=== PATIENT | male | born 1950 | race Caucasian/White ===

== ENCOUNTER 2023-09-14 10:18 | Emergency (ER) | payer MEDICARE, BC, SELFPAY ==
[2023-09-14] VITALS (35 sets, daily range): BP systolic 107–148; BP diastolic 48–110; PULSE 60–175; RESP 22; TEMP 36.2; O2SAT 70–99
--- NOTE | 2023-09-14 10:52 | ED_ITS ---
HPI - SOB/Dyspnea General Time Seen by Provider: 10:52 Date Seen: 09/14/23 Chief Complaint: Shortness of Breath/Dyspnea Stated Complaint: pneumonia / AFIB Time Seen by Provider: 09/14/23 10:21 Source: patient, family, RN notes reviewed and old records reviewed (Phone call from urgent care received about this patient, sign-out given.) Limitations: no limitations History of Present Illness HPI Narrative: This 73-year-old male was referred by Urgent Care for atrial fibrillation [place] [address]. Patient reportedly had about a 4 week history of coughing which was worsening last 2 days. He was having increasing shortness of breath. He reportedly had no prior cardiac history. He is diabetic, glucose was 426 at urgent care but he did not take is 90 units of Lantus last night. Does have hypertension and is on medication. He has no history of atrial fibrillation. He came in thinking he probably had pneumonia. No current fevers. His chest x-ray reportedly showed some infiltrate. MD elicited complaint: shortness of breath and cough Related Data Home oxygen amount: none Home Medications Medication Instructions Recorded Confirmed acarbose 50 mg tablet 50 mg PO 3XD 10/10/22 09/14/23 clobetasol 0.05 % topical cream topical 10/10/22 09/14/23 exenatide microspheres 2 mg/0.85 mg subcut 10/10/22 09/14/23 mL subcutaneous auto-injector ([employer]) glipizide 10 mg tablet, extended 10 mg PO BID 10/10/22 09/14/23 release 24 hr hydrochlorothiazide 25 mg tablet 25 mg PO DAILY 10/10/22 09/14/23 insulin glargine 100 unit/mL (3 unit subcut 10/10/22 09/14/23 mL) subcutaneous pen (Lantus Solostar U-100 Insulin) lisinopril 10 mg tablet 10 mg PO DAILY 10/10/22 09/14/23 metformin 1,000 mg tablet 1,000 mg PO BID 10/10/22 09/14/23 metoprolol tartrate 50 mg tablet 50 mg PO BID 10/10/22 09/14/23 nifedipine 60 mg tablet,extended 60 mg PO DAILY 10/10/22 09/14/23 release pen needle, diabetic 31 gauge x #1,200 ea 10/10/22 09/14/23/16 (UltiCare Pen Needle) simvastatin 80 mg tablet 80 mg PO DAILY 10/10/22 09/14/23 Previous Rx's Medication Instructions Recorded cephalexin 500 mg capsule 2,000 mg (4 x 500 mg) PO ONCE #4 12/09/22 caps Allergies Allergy/AdvReac Type Severity Reaction Status Date / Time No Known Drug Allergies Allergy Verified 09/14/23 12:34 Review of Systems Status of ROS: Reports: 6 or more systems reviewed and unremarkable except as noted in History and below [facility] Medical History High cholesterol ?E78.00 - Pure hypercholesterolemia, unspecified (ICD-10) Hypertension ?I10 - Essential (primary) hypertension (ICD-10) Lumbar degenerative disc disease ?M51.36 - Other intervertebral disc degeneration, lumbar region (ICD-10) Diabetes ?E11.9 - Type 2 diabetes mellitus without complications (ICD-10) Trigger finger (acquired) ?M65.30 - Trigger finger, unspecified finger (ICD-10) Surgical History 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) ?Z96.642 - Presence of left artificial hip joint (ICD-10) 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) ?Z96.641 - Presence of right artificial hip joint (ICD-10) Social History Smoking Status: Former smoker Do you use any of these nicotine containing products: None How often do you have a drink containing alcohol: never How often do you have six or more drinks on one occasion: Never AUDIT-C Alcohol total score: 0 Non-prescribed substance use: denies use Exam Const: Vital Signs, click to edit/add: Vital Signs - 24 hr 09/14/23 10:21 09/14/23 10:43 09/14/23 10:45 Temperature Pulse Rate 119 H 175 H Pulse Rate [Pulse Oximeter] Respiratory Rate Blood Pressure Blood Pressure [Ri ght Upper Arm] Pulse Oximetry 95 90 77 L Oxygen Delivery Me thod 09/14/23 10:47 09/14/23 11:00 09/14/23 11:15 Temperature 97.1 F L Pulse Rate 130 H 121 H Pulse Rate [Pulse Oximeter] 120 H Respiratory Rate 22 Blood Pressure Blood Pressure [Ri ght Upper Arm] 131/84 Pulse Oximetry 94 90 83 L Oxygen Delivery Me thod Room Air 09/14/23 11:30 09/14/23 11:45 09/14/23 12:00 Temperature Pulse Rate 106 H 130 H 61 Pulse Rate [Pulse Oximeter] Respiratory Rate Blood Pressure Blood Pressure [Ri ght Upper Arm] Pulse Oximetry 93 88 96 Oxygen Delivery Me thod 09/14/23 12:07 09/14/23 12:12 09/14/23 12:15 Temperature Pulse Rate 60 62 67 Pulse Rate [Pulse Oximeter] Respiratory Rate Blood Pressure 107/77 110/67 Blood Pressure [Ri ght Upper Arm] Pulse Oximetry 98 95 93 Oxygen Delivery Me thod 09/14/23 12:16 09/14/23 12:39 09/14/23 12:40 Temperature Pulse Rate 70 91 91 Pulse Rate [Pulse Oximeter] Respiratory Rate Blood Pressure 114/54 L 138/79 Blood Pressure [Ri ght Upper Arm] Pulse Oximetry 91 97 97 Oxygen Delivery Me thod 09/14/23 12:42 09/14/23 12:45 09/14/23 12:47 Temperature Pulse Rate 93 98 Pulse Rate [Pulse Oximeter] Respiratory Rate Blood Pressure 137/68 146/63 H Blood Pressure [Ri ght Upper Arm] Pulse Oximetry 98 70 L Oxygen Delivery Me thod 09/14/23 12:52 09/14/23 12:57 09/14/23 13:00 Temperature Pulse Rate 88 86 Pulse Rate [Pulse Oximeter] Respiratory Rate Blood Pressure 130/74 135/52 L Blood Pressure [Ri ght Upper Arm] Pulse Oximetry 96 98 80 L Oxygen Delivery Me thod 09/14/23 13:02 09/14/23 13:06 09/14/23 13:09 Temperature Pulse Rate 92 85 Pulse Rate [Pulse Oximeter] Respiratory Rate Blood Pressure 124/74 148/48 H Blood Pressure [Ri ght Upper Arm] Pulse Oximetry 91 95 87 L Oxygen Delivery Me thod Nasal Cannula 09/14/23 13:12 09/14/23 13:15 09/14/23 13:17 Temperature Pulse Rate 93 93 90 Pulse Rate [Pulse Oximeter] Respiratory Rate Blood Pressure 127/71 114/79 Blood Pressure [Ri ght Upper Arm] Pulse Oximetry 91 98 [facility] 13:21 09/14/23 13:27 09/14/23 13:30 Temperature Pulse Rate 89 89 90 Pulse Rate [Pulse Oximeter] Respiratory Rate Blood Pressure 124/62 129/72 Blood Pressure [Ri ght Upper Arm] Pulse Oximetry 94 96 81 L [facility]23 13:32 09/14/23 13:38 09/14/23 13:42 Temperature Pulse Rate 89 90 90 Pulse Rate [Pulse Oximeter] Respiratory Rate Blood Pressure 148/77 H 136/69 146/110 H Blood Pressure [Ri ght Upper Arm] Pulse Oximetry 99 92 98 [facility]/14/23 13:42 09/14/23 13:45 09/14/23 13:47 Temperature Pulse Rate 90 93 98 Pulse Rate [Pulse Oximeter] Respiratory Rate Blood Pressure 146/110 H 137/79 Blood Pressure [Ri ght Upper Arm] Pulse Oximetry 98 95 94 Oxygen Delivery [place] [facility] 73-year-old male is alert, interactive, tachypneic. Needing to sit upright. Sclera clear, conjugate gaze, pupils are equal round. Able to speak pretty easily but do note it shorter phrases, is not seemingly fluent in his speech. Neck is thick, difficult to say if there is jugular venous distension but I feel no masses. Maybe some slightly diminished breath sounds at bases but no definite crackles, somewhat diminished breath sounds throughout. CV is fast irregular, do not hear any murmurs. Abdomen seems like it is mildly protrude were in but he states he does not feel there is any abdominal change, does not feel distended. He certainly nontender, no organomegaly. He has some chronic pigmentary changes of his lower extremities but no pitting edema. Documenting provider has reviewed patient's vital signs: yes Course Course ED Course: This is a 73-year-old male with possible underlying pneumonia on a, he is in atrial fibrillation with RVR. Eleven on appropriate monitoring with cardiac monitoring, pulse oximetry, established an IV. I do think he may need chest CT imaging and we will consider pulmonary emboli here to. Get cardiac labs. He has not taken any of his medicines, he did show me his pillbox, will allow him to take his morning oral meds. Part of that is 60 of oral nifedipine and 50 mg oral metoprolol. Will give him a dose of 5 mg IV metoprolol for rate control for his atrial fibrillation, continue to monitor. Will do a low dose of 250 mL. We do need to consider congestive heart failure in this patient. He may need the advanced imaging with a CT to further elucidate his underlying cardiopulmonary pathology. Again, will work on rate control meantime while we await labs. Reevaluation(s) Time of Reevaluation #1: 11:48 Reevaluation #1: Did check on patient as is troponin is 20.6. He has become a hypoxic come is tachypneic. His lactate is up. He certainly could be septic, do wonder if he has some pulmonary venous congestion. He at this point needs a stat chest CT PE protocol. His potassium has been confirmed elevated at 6.2. I do believe he is going to need transfer, will contact [facility] as he has requested. Time of Reevaluation #2: 12:02 Reevaluation #2: Nursing staff brought an updated EKG which will be labile 3. Patient has converted into normal sinus rhythm, 84 beats per minute. He has flipped T-waves lead 1 and aVL, some nonspecific appearing intra conduction delay. He has got poor R-wave progression in the anterior precordial leads/Q-waves. QT corrected 475 milliseconds. Time of Reevaluation #3: 12:54 Reevaluation #3: Reviewed with patient that we are starting heparin for [place]. We will await the CT. He wanted to know about pneumonia, did review with him we do think he has congestive heart failure, will await the CT results to get better imaging of the lungs. He has not taken his 81 mg aspirin today, will order aspirin for him. Patient is starting to feel the effects of the 20 mg IV Lasix, thinks he will start urinating. Will follow his in's and out's, if not producing adequate urine, may consider further dosing of Lasix per Additional Reevaluation(s): 1:26 p.m., have reviewed his CT report, there is likely congestive heart failure but multifocal pneumonia. Have ordered IV Rocephin and IV azithromycin, will not give him anything orally in case he should go for any interventional cardiac procedures. Consultations Consultation #1: Spoke with Dr. Carr regarding this patient in the complexities of the case. He does except, we are going to initiate ACS heparin. If for some reason there is a PE, can read bolus with additional heparin and readjust the heparin drip. Will rule out pneumonia, pulmonary embolus. Patient has hyperkalemia, probable some fluid overload, 20 mg IV Lasix has been ordered. Have asked nursing staff to do in sign-out on this patient. He has become mildly hypoxic, did order 3 L nasal cannula. Need to rule out under lying pneumonia which the chest CT will do so. Time: 12:09 Vital Signs Vital signs: Initial Vital Signs Pulse Oximetry 95 09/14/23 10:21 Vital Signs Pulse Oximetry 95 09/14/23 10:21 Temperature 97.1 F L 09/14/23 10:47 Pulse Rate 98 09/14/23 13:47 Respiratory Rate 22 09/14/23 10:47 Blood Pressure 137/79 09/14/23 13:47 Pulse Oximetry 94 09/14/23 13:47 Oxygen Delivery Method Nasal Cannula 09/14/23 13:06 Medications Administered Medications: Discontinued Medications Generic Name Dose Route Start Last Admin Trade Name Freq PRN Reason Stop Dose Admin Aspirin 324 mg 09/14/23 13:25 09/14/23 13:36 Aspirin 81 Mg Tab.Chew PO 09/14/23 13:26 324 mg ONCE ONE Administration Furosemide 20 mg 09/14/23 12:00 09/14/23 12:43 Furosemide 10 Mg/Ml Inj IVP 09/14/23 12:01 20 mg ONCE ONE Administration Heparin Sodium (Porcine) 4,000 unit 09/14/23 12:32 09/14/23 12:56 Heparin 5,000 Unit/0.5 Ml Inj IVP 09/14/23 12:33 4,000 unit ONCE ONE Administration Sodium Chloride 250 mls @ 250 mls/hr 09/14/23 11:06 09/14/23 13:30 0.9 % Sodium Chloride 250 Ml IV 09/14/23 12:05 Infused .Q1H ONE Infusion Heparin Sodium/Dextrose 25,000 unit in 500 mls @ 0 mls/hr 09/14/23 12:45 09/14/23 12:57 Heparin IV 1,000 unit/hr .Q0M JEROME 20 mls/hr Administration Protocol Per Protocol Ceftriaxone Sodium 1 gm/ 100 mls @ 200 mls/hr 09/14/23 13:23 09/14/23 13:40 Sodium Chloride IVPB 09/14/23 13:24 200 mls/hr ONCE ONE Administration Azithromycin 500 mg/ Sodium 255 mls @ 255 mls/hr 09/14/23 13:23 09/14/23 13:56 Chloride IVPB 09/14/23 13:24 Not Given ONCE ONE Metoprolol Tartrate 5 mg 09/14/23 11:06 09/14/23 11:19 Metoprolol Tartrate 1 Mg/Ml Inj IVP 09/14/23 11:07 5 mg ONCE ONE Administration MDM - SOB/Dyspnea Medical Records Attestation: I reviewed the patient's medical records. Medical records narrative: Chest x-ray from urgent care read nonspecific central opacities may reflect viral or atypical pneumonia. I did look at this, do wonder if there is possibly some congestive changes. His EKG from Urgent Care today showed atrial fibrillation with rapid ventricular response, 121 beats per minute. Flipped T- waves 1 in aVL without significant ST depression. His electrolytes from clinic showed a sodium of 138,000, potassium of 6, creatinine of 1.3, chloride of 107, bicarb of 18, BUN of 49, IN ice calcium 1.18. Point of care glucose was 426. Lab Data Attestation: I reviewed the patient's lab results. Labs: Lab Results 09/14/23 09/14/23 Range/Units 10:45 11:02 INR 1.10 (0.91-1.10) APTT 29 (23-33) Seconds D-Dimer Quant (PE/DVT) 1.12 H (0.00-0.50) ug/ml VBG pH 7.286 L (7.32-7.43) VBG pCO2 38 L (40-50) mmHG VBG pO2 < 30.1 (25-47) mmHG VBG HCO3 18 L (21-28) mmol/L Potassium 6.2 H* (3.6-5.1) mmol/L Lactate 5.6 H* (0.5-1.9) mmol/L Magnesium 2.2 (1.5-2.6) mg/dL Troponin I 20.60 H* (0.01-0.04) ng/mL C-Reactive Protein 2.1 H (0.5-1.0) mg/dL NT-Pro-B Natriuret Pep 16655 pg/mL Procalcitonin 0.50 (<0.50) ng/mL TSH 2.340 (0.270-4.200) uIU/mL Lab Acknowledgement Test Added Imaging Data CT scan - chest: Attestation: I have reviewed the pertinent imaging results. Radiologist's impression: Patient: HARESH BONILLA Facility:?[facility] Patient ID:?[id number] Site Patient ID:?[id number]. Site :?[id number] Study:?CT-Chest w/ 95cc Isovue-370 PE Protocol-09/14/2023 12:53:49 PM Ordering Physician:?Dennis Lehman Final Report: INDICATION: Shortness of breath. Hypoxia. Elevated serum troponin. COMPARISON: None available. TECHNIQUE: CT pulmonary angiography with 95 cc of Isovue 370 intravenous contrast. Please note that all CT scans at this facility use dose modulation, iterative reconstruction, and/or weight-based dosing when appropriate to reduce radiation dose to as low as reasonably achievable. FINDINGS: Motion artifact limits assessment of the distal segmental and subsegmental pulmonary arteries. Pulmonary Arterial Vasculature: Opacification of the pulmonary arterial tree is adequate. No intraluminal pulmonary arterial filling defect is identified to indicate a pulmonary embolism. Visualized Lower Neck: No lower cervical adenopathy. Mediastinum: Thoracic aorta and pulmonary trunk are normal in caliber. Cardiomegaly and moderate to severe multivessel atherosclerotic coronary artery calcifications. Trachea and esophagus are normal in appearance. There is no mediastinal lymphadenopathy. Lungs and Pleura: Patchy left upper lobe and superior segment left lower lobe ground-glass opacities consistent with nonspecific pneumonitis. Incidental benign anterior segment right upper lobe micronodule. Bilateral symmetrical moderate low-density pleural effusions. No pneumothorax. Skeleton: No significant osseous findings. Thoracic soft tissues: Unremarkable. No axillary adenopathy. Visualized Upper Abdomen: No significant findings. IMPRESSION: 1. Motion limited study as above. 2. No evidence of pulmonary embolism. 3. Patchy ground-glass opacities in the left upper lobe and superior segment of the left lower lobe consistent with nonspecific multifocal pneumonitis. Recommend clinical correlation as to any cooperative evidence of pneumonia. 4. Moderate symmetrical bilateral low-density pleural effusions. 5. Cardiomegaly and moderate to severe multivessel atherosclerotic coronary artery calcifications. Please note that all CT scans at this facility use dose modulation, iterative reconstruction, and/or weight-based dosing when appropriate to reduce radiation dose to as low as reasonably achievable. Dictated by Navneet Weiss MD @ 09/14/2023 1:21:56 PM (Electronic Signature) ECG Data Attestation: I personally reviewed and interpreted this ECG as follows: (Atrial fibrillation with rapid ventricular response, 120 beats per minute. Poor R-wave progression/Q-waves anterior precordial leads without significant definite ST segment changes. Flipped T-waves lead 1 and aVL. QT corrected 440 milliseconds.) ECG interpretation date: 09/14/23 ECG interpretation time: 10:50 Interpretation: EKG #3 time 12:41 p.m. done to ensure stability and no STEMI changes is showing normal sinus rhythm, flipped T-waves lead 1 and aVL. Poor R-wave progression/Q- waves anterior precordial leads. Discharge Plan Discharge Clinical Impression: Non-ST elevated myocardial infarction (non-STEMI), Hypoxia, Paroxysmal atrial fibrillation, Multifocal pneumonia Congestive heart failure Qualifiers: Heart failure type: unspecified Heart failure chronicity: acute Qualified Code(s): I50.9 - Heart failure, unspecified Patient Disposition: Xfer [facility] Discharge Location: [facility] Prescriptions: No Action insulin glargine [Lantus Solostar U-100 Insulin] 100 unit/mL (3 mL) insulin pen subcut nifedipine 60 mg tablet extended release 60 mg PO DAILY hydrochlorothiazide 25 mg tablet 25 mg PO DAILY metoprolol tartrate 50 mg tablet 50 mg PO BID lisinopril 10 mg tablet 10 mg PO DAILY metformin 1,000 mg tablet 1,000 mg PO BID simvastatin 80 mg tablet 80 mg PO DAILY acarbose 50 mg tablet 50 mg PO 3XD glipizide 10 mg tablet extended release 24hr 10 mg PO BID Bydureon BCise 2 mg/0.85 mL auto-injector subcut clobetasol 0.05 % cream topical (DME) pen needle, diabetic [UltiCare Pen Needle] 31 gauge x 5/16 needle See Rx Instructions .ROUTE .MEDSUPPLY Qty: 1200 Patient Comments: FOR ADMINISTERING INSULIN AT HOME Rx Instructions: As directed cephalexin 500 mg capsule 2,000 mg PO ONCE Qty: 4 3RF Rx Instructions: Take 4 capsules (2000mg) 1 hour prior to dental appointment. Stand Alone Forms: [employer] Info Instructions
[2023-09-14 10:57] LABS: HCO3 VBG 18 mmol/L (21-28); PCO2 VBG 38 mmHG (40-50); PO2 VBG < 30.1 mmHG (25-47); pH VBG 7.286 (7.32-7.43)
[2023-09-14 11:07] LABS: Lactate* 5.6 mmol/L (0.5-1.9)
[2023-09-14] MEDS: 0.9 % SODIUM CHLORIDE 250 ml 250 ML IV (11:19)
[2023-09-14] MEDS: METOPROLOL TARTRATE 1 MG/ML inj 5 MG IVP (11:19)
[2023-09-14 11:24] LABS: Prothrombin Time 14.9 Seconds
[2023-09-14 11:25] LABS: Partial Thromboplastin Time* 29 Seconds (23-33)
[2023-09-14 11:26] LABS: Magnesium* 2.2 mg/dL (1.5-2.6)
[2023-09-14 11:27] LABS: D Dimer Quantitative* 1.12 ug/ml (0.00-0.50)
[2023-09-14 11:29] LABS: C Reactive Protein* 2.1 mg/dL (0.5-1.0)
[2023-09-14 11:42] LABS: Potassium* 6.2 mmol/L (3.6-5.1)
[2023-09-14 11:43] LABS: NT Pro B Type NatriureticPept* 24700 pg/mL
--- NOTE | 2023-09-14 11:49 | CT_ITS ---
Patient: HARESH BONILLA Facility:?[facility] Patient ID:?[id number] Site Patient ID:?[id number]. Site :?1950 Study:?CT-Chest w/ 95cc Isovue-370 PE Protocol-09/14/2023 12:53:49 PM Ordering Physician:?Dennis Lehman Final Report: INDICATION: Shortness of breath. Hypoxia. Elevated serum troponin. COMPARISON: None available. TECHNIQUE: CT pulmonary angiography with 95 cc of Isovue 370 intravenous contrast. Please note that all CT scans at this facility use dose modulation, iterative reconstruction, and/or weight-based dosing when appropriate to reduce radiation dose to as low as reasonably achievable. FINDINGS: Motion artifact limits assessment of the distal segmental and subsegmental pulmonary arteries. Pulmonary Arterial Vasculature: Opacification of the pulmonary arterial tree is adequate. No intraluminal pulmonary arterial filling defect is identified to indicate a pulmonary embolism. Visualized Lower Neck: No lower cervical adenopathy. Mediastinum: Thoracic aorta and pulmonary trunk are normal in caliber. Cardiomegaly and moderate to severe multivessel atherosclerotic coronary artery calcifications. Trachea and esophagus are normal in appearance. There is no mediastinal lymphadenopathy. Lungs and Pleura: Patchy left upper lobe and superior segment left lower lobe ground-glass opacities consistent with nonspecific pneumonitis. Incidental benign anterior segment right upper lobe micronodule. Bilateral symmetrical moderate low-density pleural effusions. No pneumothorax. Skeleton: No significant osseous findings. Thoracic soft tissues: Unremarkable. No axillary adenopathy. Visualized Upper Abdomen: No significant findings. IMPRESSION: 1. Motion limited study as above. 2. No evidence of pulmonary embolism. 3. Patchy ground-glass opacities in the left upper lobe and superior segment of the left lower lobe consistent with nonspecific multifocal pneumonitis. Recommend clinical correlation as to any cooperative evidence of pneumonia. 4. Moderate symmetrical bilateral low-density pleural effusions. 5. Cardiomegaly and moderate to severe multivessel atherosclerotic coronary artery calcifications. Please note that all CT scans at this facility use dose modulation, iterative reconstruction, and/or weight-based dosing when appropriate to reduce radiation dose to as low as reasonably achievable. Dictated by Navneet Weiss MD @ 09/14/2023 1:21:56 PM Signed by:?Navneet Weiss MD @09/14/2023 1:21:56 PM (Electronic Signature)
[2023-09-14] MEDS: FUROSEMIDE 10 MG/ML inj 20 MG IVP (12:43)
[2023-09-14] MEDS: HEPARIN 5,000 UNIT/0.5 ML INJ 4000 UNIT IVP (12:56)
[2023-09-14] MEDS: HEPARIN 25,000 UNIT/500 ML BAG 20 UNIT IV (12:57)
[2023-09-14] MEDS: ASPIRIN 81 MG TAB.CHEW 324 MG PO (13:36)
[2023-09-14] MEDS: cefTRIAXone 1 GM in 0.9 % SODIUM CHLORIDE Mini-bag 100 ML IVPB (13:40)
== END 2023-09-14 13:55 | disposition short-term general hospital (02) ==
PROVIDERS: Emergency Provider Family Medicine; PCP Family Medicine
DX: I21.4 Non-ST elevation (NSTEMI) myocardial infarction (principal); R09.02 Hypoxemia; I48.0 Paroxysmal atrial fibrillation; J18.9 Pneumonia, unspecified organism; I50.9 Heart failure, unspecified
CPT/HCPCS: 36415; 71275; 82803; 83605; 83735; 83880; 84132; 84145; 84443; 84484; 85379; 85610; 85730; 86140; 93005; 94761; 96361; 96374; 96375; 99285; 99291; A9270; J0696; J1644; J1940; J7050; Q9967

== ENCOUNTER 2023-09-14 13:44 | Outpatient (CLI) | payer MEDICARE, BC, SELFPAY | END 2023-09-14 13:45 | disposition home or self-care (01) | LOC: AMB 09-21 16:29 | PROVIDERS: PCP Family Medicine; Visit Provider Family Medicine | DX: I21.4 Non-ST elevation (NSTEMI) myocardial infarction (principal); R09.02 Hypoxemia; J18.9 Pneumonia, unspecified organism | CPT/HCPCS: A0425; A0434 ==

== ENCOUNTER 2023-10-04 12:35 | Inpatient (IN) | payer MEDICARE, BC, SELFPAY ==
[2023-10-04] VITALS (17 sets, daily range): BP systolic 104–148; BP diastolic 47–66; PULSE 80–89; RESP 18–22; TEMP 36.2–37.2; O2SAT 97–100; BMI 31.5; BMI 31.7
--- NOTE | 2023-10-04 13:16 | XR_ITS ---
Patient: HARESH BONILLA Facility:?[facility] Patient ID:?[id number] Site Patient ID:?[id number]. Site :?1950 Study:?XRay-Chest 2 VIEW-10/04/2023 1:36:37 PM Ordering Physician:ANA MARIA Final Report: INDICATION: Shortness of breath TECHNIQUE: Two view chest. FINDINGS: The lungs are clear. The heart, mediastinum and pulmonary vessels are of normal size. There is no evidence of pleural disease. IMPRESSION: Negative chest. Dictated by Staci Chavez MD @ 10/04/2023 2:06:28 PM Signed by:?Staci Chavez MD @10/04/2023 2:06:28 PM (Electronic Signature)
[2023-10-04 13:33] LABS: Basophils Percent Auto 0.1 % (0.0-3.0); Eosinophils Percent Auto 0.3 % (0.0-7.0); Hematocrit 20.2 % (37.0-53.0); Immature Granulocytes Pct Auto 1.8 %; Lactate* 4.2 mmol/L (0.5-1.9); Lymphocytes Percent Auto 7.1 % (20-44); Mean Corpuscular HGB Conc 32 gm/dL (32-36); Mean Corpuscular Hemoglobin 31 pg (26-34); Mean Corpuscular Volume 98 fL (80-100); Monocytes Percent Auto 3.3 % (0.0-11.0); Neutrophils Percent Auto 87.4 % (42.0-72.0); Platelet Count* 416 K/uL (140-440); RDW Coefficient of Variation % 14.6 % (11.5-15.5); Red Blood Count 2.07 m/uL (4.30-5.90); White Blood Count* 18.53 K/uL (4.50-11.00)
[2023-10-04 13:35] LABS: Hemoglobin* 6.4 gm/dL (13.5-17.5); Slide Review Reflex No
[2023-10-04 13:45] LABS: HCO3 VBG 20 mmol/L (21-28); PCO2 VBG 36 mmHG (40-50); PO2 VBG < 30.0 mmHG (25-47); pH VBG 7.348 (7.32-7.43)
[2023-10-04 13:48] LABS: Albumin* 3.6 g/dL (3.3-5.0); Chloride* 103 mmol/L (96-114)
[2023-10-04 13:49] LABS: Potassium* 5.7 mmol/L (3.6-5.1); Sodium* 134 mmol/L (135-149)
[2023-10-04 13:51] LABS: Creatinine* 1.4 mg/dL (0.5-1.5); Est. Creatinine Clearance* 44.79; Estimated Glomerular Filt Rate 53 ml/min
[2023-10-04 13:52] LABS: Alanine Aminotransferase* 29 U/L (4-50); Alkaline Phosphatase* 47 U/L (40-150); Anion Gap 11 mEq/L (7-15); Aspartate Amino Transferase* 22 U/L (12-35); Bilirubin Total* 0.5 mg/dL (0.1-1.5); Blood Urea Nitrogen* 72 mg/dL (7-30); Calcium* 8.7 mg/dL (8.4-10.6); Carbon Dioxide* 20 mmol/L (20-32); Magnesium* 1.8 mg/dL (1.5-2.6); Total Protein* 6.2 g/dL (6.0-8.3)
[2023-10-04 14:00] LABS: C Reactive Protein* < 0.5 mg/dL (0.5-1.0); Glucose* 429 mg/dL (60-115)
[2023-10-04 14:03] LABS: NT Pro B Type NatriureticPept* 4230 pg/mL
[2023-10-04 14:05] LABS: Appearance Urine Clear (Clear); Bilirubin Urine Negative (Negative); Blood Urine Negative (Negative); Color Urine Yellow (Yellow); Fecal Occult Blood* Positive (Negative); Glucose Urine 1+ (Negative); Ketones Urine Negative (Negative); Leukocyte Esterase Urine Negative (Negative); Nitrite Urine Negative (Negative); Protein Urine Negative (Negative); Specific Gravity Urine 1.015 (1.000-1.030); Urobilinogen Urine 0.2 (0.2-1.0)
[2023-10-04 14:06] LABS: Troponin I* 0.04 ng/mL (0.01-0.04)
[2023-10-04 14:11] LABS: RBC Urine 0-2 (0-2); WBC Urine 0-2 (0-5)
[2023-10-04 14:12] LABS: Squamous Epithelial Cell Urine Few (None-Few)
--- NOTE | 2023-10-04 14:36 | ED.GENADULT ---
HPI - General Adult General Chief complaint: Extremity Pain/Injury, Lower Stated complaint: Stints a week ago, cellulitis in knee, weak, sore Time Seen by Provider: 10/04/23 12:38 Source: patient Mode of arrival: ambulatory Limitations: no limitations History of Present Illness HPI narrative: 73-year-old male coming in today complaining of weakness. Three weeks ago patient was diagnosed with pneumonia and an MRI. One week ago he had stents placed. He was also recently diagnosed with cellulitis of the knee which he states has been getting better. He comes in today because he ?simply feels weak?. He denies fevers or chills. No changes in his appetite. He states that he feels slightly short of breath with minimal exertion, no shortness of breath with rest. He denies chest pain. He denies abdominal discomfort. He is not having diarrhea but is having dark stools. He denies any urinary symptoms. No nausea or vomiting. States that his dark stool started once he started Eliquis which she believes was about a week ago. Patient was also recently diagnosed with atrial fibrillation with RVR. Related Data Home Medications Medication Instructions Recorded Confirmed acarbose 50 mg tablet 50 mg PO 3XD 10/10/22 10/02/23 clobetasol 0.05 % topical cream topical 10/10/22 10/02/23 exenatide microspheres 2 mg/0.85 mg subcut 10/10/22 10/02/23 mL subcutaneous auto-injector ([employer]) glipizide 10 mg tablet, extended 10 mg PO BID 10/10/22 10/02/23 release 24 hr hydrochlorothiazide 25 mg tablet 25 mg PO DAILY 10/10/22 10/02/23 insulin glargine 100 unit/mL (3 unit subcut 10/10/22 10/02/23 mL) subcutaneous pen (Lantus Solostar U-100 Insulin) metformin 1,000 mg tablet 1,000 mg PO BID 10/10/22 10/02/23 metoprolol tartrate 50 mg tablet 50 mg PO BID 10/10/22 10/02/23 nifedipine 60 mg tablet,extended 60 mg PO DAILY 10/10/22 10/02/23 release pen needle, diabetic 31 gauge x #1,200 ea 10/10/22 10/02/2310/07 (UltiCare Pen Needle) simvastatin 80 mg tablet 80 mg PO DAILY 10/10/22 10/02/23 amiodarone 200 mg tablet mg PO 09/28/23 10/02/23 clopidogrel 75 mg tablet 75 mg PO DAILY 09/28/23 10/02/23 furosemide 20 mg tablet 20 mg PO 3XD 09/28/23 10/02/23 losartan 25 mg tablet 25 mg PO BID 09/28/23 10/02/23 metoprolol succinate 50 mg 50 mg PO BID 09/28/23 10/02/23 tablet,extended release 24 hr rosuvastatin 10 mg tablet 10 mg PO QPM 09/28/23 10/02/23 spironolactone 25 mg tablet 25 mg PO DAILY 09/28/23 10/02/23 Previous Rx's Medication Instructions Recorded cephalexin 500 mg capsule 2,000 mg (4 x 500 mg) PO ONCE #4 12/09/22 caps cephalexin 500 mg capsule 500 mg PO QID #40 caps 09/28/23 Allergies Allergy/AdvReac Type Severity Reaction Status Date / Time No Known Drug Allergies Allergy Verified 10/02/23 09:11 Review of Systems Status of ROS: Reports: 10 or more systems reviewed and unremarkable except as noted in History and below [facility] Medical History High cholesterol ?E78.00 - Pure hypercholesterolemia, unspecified (ICD-10) Hypertension ?I10 - Essential (primary) hypertension (ICD-10) Lumbar degenerative disc disease ?M51.36 - Other intervertebral disc degeneration, lumbar region (ICD-10) Diabetes ?E11.9 - Type 2 diabetes mellitus without complications (ICD-10) Trigger finger (acquired) ?M65.30 - Trigger finger, unspecified finger (ICD-10) Surgical History 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 Alert and oriented x3. Answers questions appropriately. Mood and affect are appropriate. Thoughts are goal oriented and rational. No tangential or magical thinking noted. Patient speaks in full sentences without needing to catch his breath. Is in very good spirits. HEENT: Normocephalic atraumatic. Pupils are equally round reactive to light. Extraocular muscles are intact. Conjunctivae are moist without any icterus noted. Moist mucous membranes. Mucous membranes are quite pale. Neck is supple. Cardiovascular: Heart is regular rate and rhythm. Lungs: Clear to auscultation bilaterally no wheezes rhonchi or rales are appreciated. Patient takes deep breaths without any discomfort. Abdomen: Soft and nontender nondistended with normal bowel sounds. No guarding or rebound. Extremities: Bilateral lower extremities are without edema. Right groin, site of angiogram, has some healing ecchymosis which is expected. Skin: Well perfused. Const: Vital Signs, click to edit/add: Vital Signs - 24 hr 10/04/23 12:46 Temperature 97.2 F L Pulse Rate [Pulse Oximeter] 82 Respiratory Rate 22 Blood Pressure [Ri t Upper Arm] 127/52 L Pulse Oximetry 100 Oxygen Delivery Me thod Room Air Course Course ED Course: EKG, read by me, shows normal sinus rhythm with left axis deviation. Pulse 81. CBC shows a white cell count of 18.53, hemoglobin of 6.4, hematocrit 20.2. Chemistries show a sodium of 134, potassium elevated at 5.7. BUN is 72, creatinine is 1.4. Glucose is 429. Lactate is 4.2. Normal CRP and LFTs. Urinalysis has 1+ glucose. Stool positive for occult blood. Chest x-ray, read by me, negative for any acute pathology. Urine and blood cultures pending. IV was established in the blood was typed and crossed. 2 units of packed red blood cells was ordered for transfusion along with 250 mL of normal saline. Patient was given 10 units of regular insulin. Discussed patient with Dr. Severino who will accept the patient for admission. Vital Signs Vital signs: Initial Vital Signs Temperature 97.2 F L 10/04/23 12:46 Temperature Source Temporal Artery Scan 10/04/23 12:46 Pulse Rate 82 10/04/23 12:46 Respiratory Rate 22 10/04/23 12:46 Blood Pressure 127/52 L 10/04/23 12:46 Blood Pressure Mean 77 10/04/23 12:46 Blood Pressure Position Supine 10/04/23 12:46 Pulse Oximetry 100 10/04/23 12:46 Oxygen Delivery Method Room Air 10/04/23 12:46 Vital Signs Temperature 97.2 F L 10/04/23 12:46 Pulse Rate 82 10/04/23 12:46 Respiratory Rate 22 10/04/23 12:46 Blood Pressure 127/52 L 10/04/23 12:46 Pulse Oximetry 100 10/04/23 12:46 Oxygen Delivery Method Room Air 10/04/23 12:46 Temperature 97.2 F L 10/04/23 12:46 Pulse Rate 82 10/04/23 12:46 Respiratory Rate 22 10/04/23 12:46 Blood Pressure 127/52 L 10/04/23 12:46 Pulse Oximetry 100 10/04/23 12:46 Oxygen Delivery Method Room Air 10/04/23 12:46 Medications Administered Medications: Discontinued Medications Generic Name Dose Route Start Last Admin Trade Name Freq PRN Reason Stop Dose Admin Insulin Human Regular 10 unit 10/04/23 14:00 10/04/23 14:21 Insulin Regular 100 Unit/Ml Inj IVP 10/04/23 14:01 10 unit ONCE ONE Administration Medical Decision Making [facility] Narrative Medical decision making narrative: 73-year-old male with acute blood loss anemia likely secondary to GI bleed after starting Eliquis. Elevated lactate and glucose. Hyperkalemia. Patient will be admitted for further management. Medical Records Medical records reviewed: Yes I reviewed the patient's medical records Lab Data Lab results reviewed: Yes I reviewed the patient's lab results Labs: Lab Results 10/04/23 10/04/23 Range/Units 13:22 13:49 WBC 18.53 H (4.50-11.00) K/uL RBC 2.07 L (4.30-5.90) m/uL Hgb 6.4 L* (13.5-17.5) gm/dL Hct 20.2 L (37.0-53.0) % MCV 98 (80-100) fL MCH 31 (26-34) pg MCHC 32 (32-36) gm/dL RDW Coeff of Nina 14.6 (11.5-15.5) % Plt Count 416 (140-440) K/uL Neut % (Auto) 87.4 H (42.0-72.0) % Lymph % (Auto) 7.1 L (20-44) % [place] % (Auto) 3.3 (0.0-11.0) % Eos % (Auto) 0.3 (0.0-7.0) % Baso % (Auto) 0.1 (0.0-3.0) % Neut # (Auto) 16.20 H (1.7-7.0) K/uL Lymph # (Auto) 1.30 (0.90-2.90) K/uL [place] # (Auto) 0.60 (0.00-0.90) K/UL Eos # (Auto) 0.10 (0.00-0.50) K/uL Baso # (Auto) 0.00 (0.00-0.30) K/uL Abs Immat Gran (auto) 0.30 (0.00-0.30) K/uL Imm/Tot Granulo (auto) 1.8 % VBG pH 7.348 (7.32-7.43) VBG pCO2 36 L (40-50) mmHG VBG pO2 < 30.0 (25-47) mmHG VBG HCO3 20 L (21-28) mmol/L Sodium 134 L (135-149) mmol/L Potassium 5.7 H (3.6-5.1) mmol/L Chloride 103 (96-114) mmol/L Carbon Dioxide 20 (20-32) mmol/L Anion Gap 11 (7-15) mEq/L BUN 72 H (7-30) mg/dL Creatinine 1.4 (0.5-1.5) mg/dL Estimated Creat Clear 44.79 Estimated GFR 53 ml/min Glucose 429 H* (60-115) mg/dL Lactate 4.2 H* (0.5-1.9) mmol/L Calcium 8.7 (8.4-10.6) mg/dL Magnesium 1.8 (1.5-2.6) mg/dL Total Bilirubin 0.5 (0.1-1.5) mg/dL Direct Bilirubin 0.0 (0.0-0.5) mg/dL AST 22 (12-35) U/L ALT 29 (4-50) U/L Alkaline Phosphatase 47 (40-150) U/L Troponin I 0.04 (0.01-0.04) ng/mL C-Reactive Protein < 0.5 L (0.5-1.0) mg/dL NT-Pro-B Natriuret Pep 4230 pg/mL Total Protein 6.2 (6.0-8.3) g/dL Albumin 3.6 (3.3-5.0) g/dL Urine Color Yellow (Yellow) Urine Appearance Clear (Clear) Urine pH 5.0 (5.0-8.5) Ur Specific [place] 1.015 (1.000-1.030) Urine Protein Negative (Negative) Urine Glucose (UA) 1+ A (Negative) Urine Ketones Negative (Negative) Urine Blood Negative (Negative) Urine Nitrite Negative (Negative) Urine Bilirubin Negative (Negative) Urine Urobilinogen 0.2 (0.2-1.0) Ur Leukocyte Esterase Negative (Negative) Urine RBC 0-2 (0-2) Urine WBC 0-2 (0-5) Ur Squamous Epith Cells Few (None-Few) Urine Bacteria None (None) Stool Occult Blood Positive (Negative) Imaging Data Chest x-ray: Attestation: I have reviewed the pertinent imaging results. Radiologist's impression: Patient: HARESH BONILLA Facility:?[facility] Patient ID:?[id number] Site Patient ID:?[id number]. Site :?[id number] Study:?XRay-Chest 2 VIEW-10/04/2023 1:36:37 PM Ordering Physician:ANA MARIA Final Report: INDICATION: Shortness of breath TECHNIQUE: Two view chest. FINDINGS: The lungs are clear. The heart, mediastinum and pulmonary vessels are of normal size. There is no evidence of pleural disease. IMPRESSION: Negative chest. ECG Data Attestation: I personally reviewed and interpreted this ECG as follows: Discharge Plan Discharge Clinical Impression: GI bleed, Hyperglycemia, Acute blood loss anemia, Acute hyperkalemia Patient Disposition: Admitted As Observation Condition: Stable Prescriptions: No Action insulin glargine [Lantus Solostar U-100 Insulin] 100 unit/mL (3 mL) insulin pen subcut nifedipine 60 mg tablet extended release 60 mg PO DAILY hydrochlorothiazide 25 mg tablet 25 mg PO DAILY metoprolol tartrate 50 mg tablet 50 mg PO BID metformin 1,000 mg tablet 1,000 mg PO BID simvastatin 80 mg tablet 80 mg PO DAILY acarbose 50 mg tablet 50 mg PO 3XD glipizide 10 mg tablet extended release 24hr 10 mg PO BID Bydureon BCise 2 mg/0.85 mL auto-injector subcut clobetasol 0.05 % cream topical (DME) pen needle, diabetic [UltiCare Pen Needle] 31 gauge x 5/16 needle See Rx Instructions .ROUTE .MEDSUPPLY Qty: 1200 Patient Comments: FOR ADMINISTERING INSULIN AT HOME Rx Instructions: As directed rosuvastatin 10 mg tablet 10 mg PO QPM losartan 25 mg tablet 25 mg PO BID furosemide 20 mg tablet 20 mg PO 3XD spironolactone 25 mg tablet 25 mg PO DAILY clopidogrel 75 mg tablet 75 mg PO DAILY metoprolol succinate 50 mg tablet extended release 24 hr 50 mg PO BID amiodarone 200 mg tablet PO cephalexin 500 mg capsule 500 mg PO QID Qty: 40 0RF cephalexin 500 mg capsule 2,000 mg PO ONCE Qty: 4 3RF Rx Instructions: Take 4 capsules (2000mg) 1 hour prior to dental appointment. Follow Up/Referrals: Emir High MD [Primary Care Provider] -
[2023-10-04 15:01] LABS: Glucose, Point-of-Care* 344 mg/dl (60-115)
[2023-10-04 15:10] LABS: Potassium* 5.2 mmol/L (3.6-5.1)
[2023-10-04] MEDS: 0.9 % SODIUM CHLORIDE 250 ml IV (15:43)
[2023-10-04] MEDS: PANTOPRAZOLE SODIUM 40 MG INJ IVP (16:15)
[2023-10-04] MEDS: INSULIN ASPART 100 UNIT/ML SUBCUT ×2 (17:37→20:48)
--- NOTE | 2023-10-04 17:58 | P.IMHP_ITS ---
Hospitalist- H&P: HPI History of Present Illness Date Seen: 10/04/23 Chief complaint: Stints a week ago, cellulitis in knee, weak, sore Narrative: Osbaldo Stanley is a 73 year old male admitted through the emergency department with progressive fatigue malaise and weakness. Significant recent history: On September 13 he present to our emergency department with a respiratory illness. Is diagnosed and treated for a community-acquired pneumonia but also was noted to have a marked elevation in his troponin of 20.6. On this basis he was transferred to [facility] where underwent treatment for pneumonia, heart failure and new atrial fibrillation. He had at a coronary angiogram where he was found to have 2 drug- eluting stents placed in his LAD and left circumflex on September 20. Since that time he reports he has been generally doing well except for his progressive fatigue malaise and weakness. He notes around the time he was discharged from the hospital on September 22 he developed black loose stools. He was discharged on Eliquis for AFib and clopidogrel for his coronary stents. He has not noted marked shortness of breath. He has not had chest pain at any point including at the time he was having an elevated troponin. He has not had any abdominal pain or vomiting. He has had loose black stools but otherwise no other gastrointestinal problems. He reports no new urinary problems. Other notable findings during that hospitalization and subsequently include elevated potassium(6.2), lactic acidosis (5.6) mildly abnormal ALT (108). He had an echocardiogram which showed an ejection fraction of 20- 25%. Review of Systems Narrative: Patient reports generally feeling well other than symptoms described above. [facility] Medical History (Updated 10/04/23 @ 18:23 by Jose Severino MD) Lactic acidosis ?E87.20 - Acidosis, unspecified (ICD-10) Atrial fibrillation ?I48.91 - Unspecified atrial fibrillation (ICD-10) Heart failure with reduced ejection fraction ?I50.20 - Unspecified systolic (congestive) heart failure (ICD-10) Coronary artery disease ?I25.10 - Atherosclerotic heart disease of [place] coronary artery without angina pectoris (ICD-10) High cholesterol ?E78.00 - Pure hypercholesterolemia, unspecified (ICD-10) Hypertension ?I10 - Essential (primary) hypertension (ICD-10) Lumbar degenerative disc disease ?M51.36 - Other intervertebral disc degeneration, lumbar region (ICD-10) Diabetes ?E11.9 - Type 2 diabetes mellitus without complications (ICD-10) Trigger finger (acquired) ?M65.30 - Trigger finger, unspecified finger (ICD-10) Surgical History (Updated 10/04/23 @ 18:08 by Jose Severino MD) History of coronary artery stent placement ?Z95.5 - Presence of coronary angioplasty implant and graft (ICD-10) 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 His several years ago. Daughter Amanda and son Ralph are closest family. They are also healthcare power of bus person dishwasher. Code status is full. He drinks 1 glass of wine a day. He does not smoke Smoking Status: Former smoker Do you use any of these nicotine containing products: None How often do you have a drink containing alcohol: never How often do you have six or more drinks on one occasion: Never AUDIT-C Alcohol total score: 0 Non-prescribed substance use: denies use Meds Home Medications and Allergies Home Medications Medication Instructions Recorded Confirmed Type acarbose 50 mg tablet 50 mg PO 3XD 10/10/22 10/02/23 History clobetasol 0.05 % topical cream topical 10/10/22 10/02/23 History exenatide microspheres 2 mg/0.85 mg subcut 10/10/22 10/02/23 History mL subcutaneous auto-injector ([employer]) glipizide 10 mg tablet, extended 10 mg PO BID 10/10/22 10/02/23 History release 24 hr hydrochlorothiazide 25 mg tablet 25 mg PO DAILY 10/10/22 10/02/23 History insulin glargine 100 unit/mL (3 unit subcut 10/10/22 10/02/23 History mL) subcutaneous pen (Lantus Solostar U-100 Insulin) metformin 1,000 mg tablet 1,000 mg PO BID 10/10/22 10/02/23 History metoprolol tartrate 50 mg tablet 50 mg PO BID 10/10/22 10/02/23 History nifedipine 60 mg tablet,extended 60 mg PO DAILY 10/10/22 10/02/23 History release pen needle, diabetic 31 gauge x #1,200 ea 10/10/22 10/02/23 History 5/16 (UltiCare Pen Needle) simvastatin 80 mg tablet 80 mg PO DAILY 10/10/22 10/02/23 History amiodarone 200 mg tablet mg PO 09/28/23 10/02/23 History clopidogrel 75 mg tablet 75 mg PO DAILY 09/28/23 10/02/23 History furosemide 20 mg tablet 20 mg PO 3XD 09/28/23 10/02/23 History losartan 25 mg tablet 25 mg PO BID 09/28/23 10/02/23 History metoprolol succinate 50 mg 50 mg PO BID 09/28/23 10/02/23 History tablet,extended release 24 hr rosuvastatin 10 mg tablet 10 mg PO QPM 09/28/23 10/02/23 History spironolactone 25 mg tablet 25 mg PO DAILY 09/28/23 10/02/23 History Allergies Allergy/AdvReac Type Severity Reaction Status Date / Time No Known Drug Allergies Allergy Verified 10/02/23 09:11 Exam Narrative: Exam Narrative: He is alert and appears in no distress. Mood and affect are bright. Oropharynx is normal. Neck is supple without mass or adenopathy. Respirations are clear to auscultation. Good air exchange all lung jovel. Cardiovascular: S1, S2, regular rate and rhythm. Abdomen is soft without tenderness. Bowel sounds are active. No mass. External genitalia normal. Extremities without significant edema. He moves all 4 extremities well. Const: Vital Signs, click to edit/add: Vital Signs - 24 hr 10/04/23 12:46 10/04/23 14:00 10/04/23 14:32 Temperature 97.2 F L Pulse Rate 82 Pulse Rate [Pulse Oximeter] 82 81 Respiratory Rate 22 20 Blood Pressure Blood Pressure [Ri ght Upper Arm] 127/52 L 104/47 L Pulse Oximetry 100 99 100 Oxygen Delivery Me thod Room Air Room Air 10/04/23 15:23 10/04/23 15:40 10/04/23 16:40 Temperature 97.8 F 98.3 F Pulse Rate 83 83 81 Pulse Rate [Pulse Oximeter] Respiratory Rate 18 18 Blood Pressure 107/53 L 115/66 Blood Pressure [Ri ght Upper Arm] Pulse Oximetry 100 99 Oxygen Delivery Me thod Documenting provider has reviewed patient's vital signs: yes Hospitalist - H&P: Result Labs Labs: Short CBC 10/04/23 Range/Units 13:22 WBC 18.53 H (4.50-11.00) K/uL Hgb 6.4 L* (13.5-17.5) gm/dL Hct 20.2 L (37.0-53.0) % Plt Count 416 (140-440) K/uL BMP 10/04/23 10/04/23 13:22 14:45 Sodium 134 L Potassium 5.7 H 5.2 H Chloride 103 Carbon Dioxide 20 BUN 72 H Creatinine 1.4 Glucose 429 H* Calcium 8.7 Cardiac Enzymes 10/04/23 Range/Units 13:22 Troponin I 0.04 (0.01-0.04) ng/mL Liver Function 10/04/23 Range/Units 13:22 Total Bilirubin 0.5 (0.1-1.5) mg/dL Direct Bilirubin 0.0 (0.0-0.5) mg/dL AST 22 (12-35) U/L ALT 29 (4-50) U/L Alkaline Phosphatase 47 (40-150) U/L Albumin 3.6 (3.3-5.0) g/dL Urine 10/04/23 Range/Units 13:49 Urine Color Yellow (Yellow) Urine Appearance Clear (Clear) Urine pH 5.0 (5.0-8.5) Ur Specific [place] 1.015 (1.000-1.030) Urine Protein Negative (Negative) Urine Glucose (UA) 1+ A (Negative) ECG Attestation: I personally reviewed and interpreted this ECG as follows: (Normal sinus rhythm. Nonspecific ST-T changes including T-wave inversions in leads 1 and 2 in general T-wave flattening) Imaging Chest x-ray: Radiologist's impression: INDICATION: Shortness of breath TECHNIQUE: Two view chest. FINDINGS: The lungs are clear. The heart, mediastinum and pulmonary vessels are of normal size. There is no evidence of pleural disease. IMPRESSION: Negative chest. Assessment and Plan Assessment and plan (1) GI bleed: Problem comment: Hemoglobin has dropped from 13 to 6.4 in the last 2 weeks with history of melanotic stools and initiation of treatment with Plavix for coronary stents and Eliquis for atrial fibrillation. Patient is tolerating this fairly well. Manage this cautiously due to presence of heart failure and coronary stents and atrial fibrillation. Going to hold the Eliquis but continue the Plavix and continue to closely monitor hemoglobins. Transfuse blood. Obtain EGD. Status: Acute (2) Acute blood loss anemia: Problem comment: Transfuse and closely monitor. Hold Eliquis. Continue clopidogrel Status: Acute (3) Coronary artery disease: Problem comment: Currently asymptomatic. Clopidogrel for stents Status: Acute (4) Heart failure with reduced ejection fraction: Problem comment: Echo August 2023 showed ejection fraction of 20-25% at the time of non-STEMI Status: Acute (5) Acute hyperkalemia: Problem comment: Hold losartan for soft blood pressure and hyperkalemia. May need to increase furosemide to allow for resumption of losartan Status: Acute (6) Lactic acidosis: Problem comment: Hold metformin. No other obvious signs of sepsis or acute illness to explain lactic acidosis which has been present for 3 weeks. Continue to monitor for ev idence of sepsis and monitor lactates off metformin Status: Acute (7) Diabetes: Problem comment: Recently has been well controlled. Hemoglobin A1c on September 14, 2023 was 6.6. Elevated blood sugar today. Hold glipizide and metformin and acarbose. Start Jardiance. Consider switching to b.i.d. insulin with Novolin 70/30 Status: Acute Plan Patient has been the hospital for evaluation of GI bleeding and acute blood loss anemia in the context of anticoagulation for atrial fibrillation and antiplatelet therapy for coronary stenting. High risk for bleeding and thrombosis both. Will also make multiple changes to medications for diabetes and heart failure due to hyperkalemia and lactic acidosis. Anticipate hospitalization for 3 days. Total Time Spent Total Time Spent: Total time spent today is 90 minutes, 60 minutes in coordination of care and discussing with patient and other providers ongoing evaluation management of GI bleeding, diabetes, heart failure and coronary disease and AFib
[2023-10-04] MEDS: FUROSEMIDE 10 MG/ML inj 20 MG IV (18:38)
[2023-10-04] MEDS: METOPROLOL SUCCINATE (XL) 50 MG TAB PO (20:46)
[2023-10-04] MEDS: OMEPRAZOLE 20 MG CAPSULE DR PO (20:46)
[2023-10-04] MEDS: ROSUVASTATIN CALCIUM 10 MG TABLET PO (20:47)
[2023-10-04 22:29] LABS: Lactate* 1.2 mmol/L (0.5-1.9)
[2023-10-04] MEDS: MELATONIN 3 MG TABLET PO (22:34)
[2023-10-04 22:37] LABS: Hemoglobin* 9.1 gm/dL (13.5-17.5)
[2023-10-05] VITALS (8 sets, daily range): BP systolic 120–143; BP diastolic 52–69; PULSE 70–95; RESP 16–20; TEMP 36.2–36.8; O2SAT 93–99
[2023-10-05 06:21] LABS: Basophils Absolute Auto 0.03 K/uL (0.00-0.30); Basophils Percent Auto 0.3 % (0.0-3.0); Eosinophils Absolute Auto 0.18 K/uL (0.00-0.50); Eosinophils Percent Auto 1.7 % (0.0-7.0); Hematocrit 42.2 % (37.0-53.0); Hemoglobin* 14.1 gm/dL (13.5-17.5); Immature Granulocytes Abs Auto 0.23 K/uL (0.00-0.30); Immature Granulocytes Pct Auto 2.1 %; Lymphocytes Percent Auto 13.7 % (20-44); Mean Corpuscular HGB Conc 33 gm/dL (32-36); Mean Corpuscular Hemoglobin 30 pg (26-34); Mean Corpuscular Volume 91 fL (80-100); Monocytes Percent Auto 6.2 % (0.0-11.0); Platelet Count* 207 K/uL (140-440); RDW Coefficient of Variation % 15.3 % (11.5-15.5); Red Blood Count 4.66 m/uL (4.30-5.90); White Blood Count* 10.84 K/uL (4.50-11.00)
[2023-10-05 06:25] LABS: Slide Review Reflex No
[2023-10-05 06:31] LABS: Chloride* 107 mmol/L (96-114)
[2023-10-05 06:32] LABS: Potassium* 4.2 mmol/L (3.6-5.1); Sodium* 137 mmol/L (135-149)
[2023-10-05 06:34] LABS: Creatinine* 1.3 mg/dL (0.5-1.5); Est. Creatinine Clearance* 48.23; Estimated Glomerular Filt Rate 58 ml/min
[2023-10-05 06:35] LABS: Anion Gap 6 mEq/L (7-15); Blood Urea Nitrogen* 66 mg/dL (7-30); Calcium* 8.8 mg/dL (8.4-10.6); Carbon Dioxide* 24 mmol/L (20-32); Glucose* 158 mg/dL (60-115)
--- NOTE | 2023-10-05 06:54 | PC.NURSE ---
End of shift [id number]: A&O pleasant and cooperative. VSS w/ sats >90% on RA. Finished 2nd unit of blood w/out any complication. Denies pain. LS clear. Using home CPAP. Up w/ A1 walker and gait belt. Urinal at bedside. Using call light appropriately. ?
[2023-10-05 08:09] LABS: Hemoglobin* 9.1 gm/dL (13.5-17.5)
[2023-10-05] MEDS: CLOPIDOGREL 75 MG TABLET PO (08:45)
[2023-10-05] MEDS: FUROSEMIDE 20 MG TABLET PO ×2 (08:45→14:39)
--- NOTE | 2023-10-05 12:42 | W.ANESCHARGE ---
Anesthesia Charges Start Date/Time Anesthesia Start Date: 10/05/23 Anesthesia Start Time: 12:40 Stop Date/Time Anesthesia Stop Date: 10/05/23 Anesthesia Stop Time: 12:55 Summary Extremes of Age - Over 70 or under 1: MDA
--- NOTE | 2023-10-05 12:55 | W.ANESCHARGE ---
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
[2023-10-05] MEDS: AMIODARONE 200 MG TABLET 400 MG PO (14:39)
[2023-10-05] MEDS: INSULIN ASPART 100 UNIT/ML SUBCUT ×2 (17:45→20:25)
--- NOTE | 2023-10-05 18:45 | PC.NURSE ---
End of shift: The patient is pleasant and appropriate throughout the day. Alert and orientated. NPO until EGD this afternoon. Hgb stabilized so far @ 9.1. The patient reported mild knee pain in his l knee, he reported to me that not to long ago he was diagnosed with cellulitis in that knee. PRN Tylenol given with adequate relief... offered an ice pack, but the patient respectfully declined. Up SBA to BR throughout the day w/ RW. We walked in the halls this afternoon... the patient tolerated this well. TEDS in place. Tolerating a regular diet since lunch. 1 BM this evening which was noted to be black and formed. Calls appropriately, the patient hopes to return home tomorrow. Saloni GARCIA BSN
[2023-10-05] MEDS: METOPROLOL SUCCINATE (XL) 50 MG TAB PO (20:20)
[2023-10-05] MEDS: OMEPRAZOLE 20 MG CAPSULE DR PO (20:20)
[2023-10-05] MEDS: ROSUVASTATIN CALCIUM 10 MG TABLET PO (20:21)
[2023-10-05] MEDS: MELATONIN 3 MG TABLET PO (20:21)
[2023-10-05] MEDS: SODIUM CHLORIDE 0.9 % (FLUSH) 10 ML SYRINGE 5 ML IVF (20:22)
[2023-10-05] MEDS: ACETAMINOPHEN 325 MG TABLET 650 MG PO (21:20)
[2023-10-06 02:13] VITALS: BP 113/68; PULSE 66; RESP 18; TEMP 36.8; O2SAT 96
--- NOTE | 2023-10-06 04:39 | PC.NURSE ---
Pt up IND in room reporting zero pain. States he feels much better. VSS. Pleasant and Cooperative
[2023-10-06 06:34] LABS: Basophils Percent Auto 0.2 % (0.0-3.0); Hematocrit 26.9 % (37.0-53.0); Hemoglobin* 8.6 gm/dL (13.5-17.5); Immature Granulocytes Pct Auto 1.1 %; Lymphocytes Percent Auto 13.8 % (20-44); Mean Corpuscular HGB Conc 32 gm/dL (32-36); Mean Corpuscular Hemoglobin 30 pg (26-34); Mean Corpuscular Volume 95 fL (80-100); Monocytes Percent Auto 6.8 % (0.0-11.0); Neutrophils Percent Auto 75.1 % (42.0-72.0); Platelet Count* 297 K/uL (140-440); RDW Coefficient of Variation % 15.3 % (11.5-15.5); Red Blood Count 2.84 m/uL (4.30-5.90); White Blood Count* 14.22 K/uL (4.50-11.00)
[2023-10-06 06:44] LABS: Slide Review Reflex Yes
[2023-10-06 06:46] LABS: Slide Review Acceptable Review (Acceptable)
[2023-10-06 06:55] LABS: Chloride* 105 mmol/L (96-114); Sodium* 139 mmol/L (135-149)
[2023-10-06 06:58] LABS: Anion Gap 9 mEq/L (7-15); Carbon Dioxide* 25 mmol/L (20-32); Estimated Glomerular Filt Rate 79 ml/min
[2023-10-06 06:59] LABS: Blood Urea Nitrogen* 55 mg/dL (7-30); Calcium* 8.8 mg/dL (8.4-10.6); Glucose* 103 mg/dL (60-115)
[2023-10-06 07:00] VITALS: BP 136/57; PULSE 82; PULSE 88; RESP 20; TEMP 36.2; O2SAT 100
[2023-10-06] MEDS: LOSARTAN POTASSIUM 50 MG TABLET 25 MG PO (08:46)
[2023-10-06] MEDS: CLOPIDOGREL 75 MG TABLET PO (08:47)
[2023-10-06] MEDS: OMEPRAZOLE 20 MG CAPSULE DR PO (08:47)
[2023-10-06] MEDS: METOPROLOL SUCCINATE (XL) 50 MG TAB PO (08:47)
[2023-10-06] MEDS: EMPAGLIFLOZIN 10 MG TABLET PO (08:47)
[2023-10-06] MEDS: FUROSEMIDE 20 MG TABLET 60 MG PO (08:48)
[2023-10-06] MEDS: AMIODARONE 200 MG TABLET PO ×3 (08:48→08:54)
[2023-10-06] MEDS: SPIRONOLACTONE 25 MG TABLET PO (08:51)
[2023-10-06] MEDS: ACETAMINOPHEN 325 MG TABLET 650 MG PO (09:35)
[2023-10-06] MEDS: INSULIN ASPART 100 UNIT/ML SUBCUT (12:05)
--- NOTE | 2023-10-06 12:08 | P.DS_ITS ---
DS: Providers Provider Time Seen by Provider: 08:01 Date Seen: 10/06/23 Date of admission: 10/04/23 15:54 Primary care physician: Emir High MD Admitting Clinician: Racquel Parr MD Attending Physician on discharge: Racquel Parr MD Date of Discharge: 10/06/23 DS: Diagnosis Discharge Diagnosis (1) GI bleed: Status: Acute Problem details: - 10/03 Hemoglobin has dropped from 13 to 6.4 in the last 2 weeks with history of melanotic stools and initiation of treatment with Plavix for coronary stents and Eliquis for atrial fibrillation. Patient is tolerating this fairly well. Manage this cautiously due to presence of heart failure and coronary stents and atrial fibrillation. Going to hold the Eliquis but continue the Plavix and continue to closely monitor hemoglobins. Transfuse blood. Obtain EGD. - 10/04 EGD showed no active bleeding, moderate gastritis. Start omeprazole. Hgb stable today. Keep tonight yet and monitor Hgb while allowing him to eat and continue plavix. - 10/05 Hgb stable at 8.6. One BM which was less melanotic. Denies SOB, lightheadedness. (2) Acute blood loss anemia: Status: Acute Problem details: - 10/03 Transfuse and closely monitor. Hold Eliquis. Continue clopidogrel - 10/04 stable (3) Coronary artery disease: Status: Acute Problem details: Currently asymptomatic. Clopidogrel for stents. Completed recommended 1 week course of aspirin. (4) Heart failure with reduced ejection fraction: Status: Acute Problem details: Echo August 2023 showed ejection fraction of 20-25% at the time of non-STEMI Chronic, compensated at this time. (5) Acute hyperkalemia: Status: Resolved Problem details: Resolved. Although losartan was held, his last dose was yesterday morning, so effectively he is still on losartan, spironolactone and lasix, and has had resolution of hyperkalemia. Will restart losartan and consider stopping vs holding spironolactone. Ideally he'd be on all three due to HFrEF. (6) Lactic acidosis: Status: Resolved Problem details: - Hold metformin. No other obvious signs of sepsis or acute illness to explain lactic acidosis which has been present for 3 weeks. Continue to monitor for evidence of sepsis and monitor lactates off metformin - Resolved. discontinue metformin all together. Have patient f/u with PCP. (7) Diabetes: Status: Acute Problem details: - 10/03 Recently has been well controlled. Hemoglobin A1c on September 14, 2023 was 6.6. Elevated blood sugar today. Hold glipizide and metformin and acarbose. Start Jardiance. Consider switching to b.i.d. insulin with Novolin 70/30 - 10/04 BG elevated. Recently started Jardiance. Continue levemir, ISS. - 10/05 BG less elevated today. Continue Jardiance and LA insulin for homegoing. F/u with Dr. High later this week. DS: Summary Hospital Course Hospital Course: Per H&P: Osbaldo Stanley is a 73 year old male admitted through the emergency department with progressive fatigue malaise and weakness. Significant recent history: On September 13 he present to our emergency department with a respiratory illness. Is diagnosed and treated for a community-acquired pneumonia but also was noted to have a marked elevation in his troponin of 20.6. On this basis he was transferred to [facility] where underwent treatment for pneumonia, heart failure and new atrial fibri llation. He had at a coronary angiogram where he was found to have 2 drug- eluting stents placed in his LAD and left circumflex on September 20. Since that time he reports he has been generally doing well except for his progressive fatigue malaise and weakness. He notes around the time he was discharged from the hospital on September 22 he developed black loose stools. He was discharged on Eliquis for AFib and clopidogrel for his coronary stents. He has not noted marked shortness of breath. He has not had chest pain at any point including at the time he was having an elevated troponin. He has not had any abdominal pain or vomiting. He has had loose black stools but otherwise no other gastrointestinal problems. He reports no new urinary problems. Other notable findings during that hospitalization and subsequently include elevated potassium(6.2), lactic acidosis (5.6) mildly abnormal ALT (108). He had an echocardiogram which showed an ejection fraction of 20- 25%. - EGD showed moderate gastritis; started omeprazole. Although this may interfere with plavix, I think it is a priority to have him on omeprazole to treat gastritis in light of GI bleed and need for antiplatelets and anticoagulation. - Hyperkalemia resolved, see above for more discussion. I stopped spironolactone and will have him f/u with PCP this week with labs. - Elevated lactate: possibly due to metformin. This has been stopped (as have glipizide and acarbose), and Jardiance started. May need ozempic as well. Check BG 4x/day at home and f/u with PCP. Time Spent with Patient Time attestation: Total time spent providing and/or coordinating discharge services: 40 minutes due to conversation with patient and multiple medication changes. Exam Narrative: Exam Narrative: General: No acute distress. Awake, alert, oriented. No pallor. No jaundice. Oropharynx: Clear. Mucous membranes moist. Cardiovascular: Regular rate and rhythm. No murmurs, gallops, or rubs. Respiratory: Clear to auscultation bilaterally. No wheezes or crackles. Abdomen: Bowel sounds present. Soft, nondistended, nontender. Extremities: No pedal edema. Const: Vital Signs, click to edit/add: Vital Signs - 24 hr 10/05/23 15:00 10/05/23 19:42 10/05/23 21:20 Temperature 98.2 F 98.2 F 98.2 F Pulse Rate Pulse Rate [Apical ] Pulse Rate [Pulse Oximeter] 95 85 Respiratory Rate 16 16 Blood Pressure [Le ft Arm] 143/68 H 120/69 Pulse Oximetry 93 95 [facility] Room Air 10/05/23 21:29 10/05/23 22:53 10/05/23 22:58 Temperature 98.2 F Pulse Rate 87 Pulse Rate [Apical ] 88 Pulse Rate [Pulse Oximeter] 86 86 Respiratory Rate 18 18 Blood Pressure [Le ft Arm] 124/52 L Pulse Oximetry 98 [facility] Air 10/06/23 02:13 10/06/23 07:00 10/06/23 07:00 Temperature 98.2 F 97.1 F L Pulse Rate Pulse Rate [Apical ] Pulse Rate [Pulse Oximeter] 66 82 82 Respiratory Rate 18 20 20 Blood Pressure [Le ft Arm] 113/68 136/57 L Pulse Oximetry 96 100 [facility] Room [facility] Room Air 10/06/23 07:00 Temperature Pulse Rate 88 Pulse Rate [Apical ] Pulse Rate [Pulse Oximeter] Respiratory Rate Blood Pressure [Le ft Arm] Pulse Oximetry Oxygen Delivery Nc thod DS: Data Data Completed and Pending Completed studies during hospitalization: Study: XRay-Chest 2 VIEW-10/04/2023 1:36:37 PM Ordering Physician: VALERIE Final Report: INDICATION: Shortness of breath TECHNIQUE: Two view chest. FINDINGS: The lungs are clear. The heart, mediastinum and pulmonary vessels are of normal size. There is no evidence of pleural disease. IMPRESSION: Negative chest. Dictated by Staci Chavez MD @ 10/04/2023 2:06:28 PM Signed by: Staci Chavez MD @10/04/2023 2:06:28 PM (Electronic Signature) 10/04/2023 EKG: Normal sinus rhythm, 81 beats per minute, left axis deviation, ST and T-wave abnormality, consider lateral ischemia. Labs on day of discharge: Labs from last 24 hours 10/06/23 06:04 WBC 14.22 H RBC 2.84 L Hgb 8.6 L Hct 26.9 L MCV 95 MCH 30 MCHC 32 RDW Coeff of Nina 15.3 Plt Count 297 Neut % (Auto) 75.1 H Lymph % (Auto) 13.8 L [place] % (Auto) 6.8 Eos % (Auto) 3.0 Baso % (Auto) 0.2 Neut # (Auto) 10.70 H Lymph # (Auto) 2.00 [place] # (Auto) 1.00 H Eos # (Auto) 0.40 Baso # (Auto) 0.00 Abs Immat Gran (auto) 0.20 Imm/Tot Granulo (auto) 1.1 Diff Slide Review Acceptable Review Sodium 139 Potassium 4.0 Chloride 105 Carbon Dioxide 25 Anion Gap 9 BUN 55 H Creatinine 1.0 Estimated Creat Clear 62.70 Estimated GFR 79 Glucose 103 Calcium 8.8 Preliminary micro results at discharge 10/04/23 14:45 Blood Culture - Preliminary Blood NO GROWTH AFTER 24 HOURS 10/04/23 14:45 Blood Culture - Preliminary Blood NO GROWTH AFTER 24 HOURS Discharge Plan Discharge Disposition: Home, Self-Care Date of Admission: 10/04/23 15:54 Attending Provider on Discharge: Racquel Parr Primary Care Provider: Emir High Condition: Stable Anticipated Discharge Date/Time: 10/06/23 12:19 Discharge Medications: New omeprazole 20 mg Capsule,Delayed Release(Dr/Ec) 20 mg PO BID Qty: 60 0RF Jardiance 10 mg Tablet 10 mg PO DAILY Qty: 30 0RF Continued insulin glargine [Lantus Solostar U-100 Insulin] 100 unit/mL (3 mL) insulin pen 100 unit subcut HS clobetasol 0.05 % cream topical (DME) pen needle, diabetic [UltiCare Pen Needle] 31 gauge x 5/16 needle See Rx Instructions .ROUTE .MEDSUPPLY Qty: 1200 Patient Comments: FOR ADMINISTERING INSULIN AT HOME Rx Instructions: As directed rosuvastatin 10 mg tablet 10 mg PO QPM losartan 25 mg tablet 25 mg PO BID furosemide 20 mg tablet 60 mg PO QDAY clopidogrel 75 mg tablet 75 mg PO DAILY metoprolol succinate 50 mg tablet extended release 24 hr 50 mg PO BID amiodarone 200 mg tablet 200 mg PO Q24H Held Eliquis 5 mg tablet 5 mg PO BID Hold Instructions: Resume on 10/09/23. Discontinued metoprolol tartrate 50 mg tablet 50 mg PO BID metformin 1,000 mg tablet 1,000 mg PO BID acarbose 50 mg tablet 50 mg PO 3XD glipizide 10 mg tablet extended release 24hr 10 mg PO BID spironolactone 25 mg tablet 25 mg PO DAILY cephalexin 500 mg capsule 500 mg PO QID Qty: 40 0RF cephalexin 500 mg capsule 2,000 mg PO ONCE Qty: 4 3RF Hold Instructions: Order Change Rx Instructions: Take 4 capsules (2000mg) 1 hour prior to dental appointment. Discharge Orders: Discharge Order (Routine); Ordered 10/06/23 Ordered By: Racquel Parr Patient Education: Omeprazole (By mouth), Empagliflozin (By mouth) (Jardiance), Gastrointestinal Bleeding (DC), Anemia (DC) Additional Instructions: Return for any bright red blood in the stool, worsening melena, worsening SOB, new CP, etc. Hold Eliquis for 3 more days, then restart. Check blood sugars 4 times a day and bring these values to the appointment with your PCP on Thursday. If you have lows, call your PCP. Note that there were two orders for metoprolol, so it looks like I am disc ontinuing it, but I am not. I want you to keep taking metoprolol as previously prescribed. Activity Level: No Restrictions Discharge Diet: Diabetic and Heart Healthy (2 gm sodium, low fat) Follow Up Appointments: Janice Payton DO [Staff Physician] - 10/09/23 11:00 am ([facility] for follow up.) Emir High MD [Primary Care Provider] - (later this week with BMP, Hgb) Forms: [employer] Info Instructions
--- NOTE | 2023-10-06 13:53 | PM.IMPN1 ---
Progress Note: A&P Assessment and plan (1) GI bleed: Problem details: - 10/03 Hemoglobin has dropped from 13 to 6.4 in the last 2 weeks with history of melanotic stools and initiation of treatment with Plavix for coronary stents and Eliquis for atrial fibrillation. Patient is tolerating this fairly well. Manage this cautiously due to presence of heart failure and coronary stents and atrial fibrillation. Going to hold the Eliquis but continue the Plavix and continue to closely monitor hemoglobins. Transfuse blood. Obtain EGD. -10/04 EGD showed no active bleeding, moderate gastritis. Start omeprazole. Hgb stable today. Keep tonight yet and monitor Hgb while allowing him to eat and continue plavix. Status: Acute (2) Acute blood loss anemia: Problem details: - 10/03 Transfuse and closely monitor. Hold Eliquis. Continue clopidogrel Status: Acute (3) Coronary artery disease: Problem details: Currently asymptomatic. Clopidogrel for stents. Completed recommended 1 week course of aspirin. Status: Acute (4) Lactic acidosis: Problem details: - Hold metformin. No other obvious signs of sepsis or acute illness to explain lactic acidosis which has been present for 3 weeks. Continue to monitor for evidence of sepsis and monitor lactates off metformin - Resolved. discontinue metformin all together. Have patient f/u with PCP. Status: Acute (5) Diabetes: Problem details: - 10/03 Recently has been well controlled. Hemoglobin A1c on September 14, 2023 was 6.6. Elevated blood sugar today. Hold glipizide and metformin and acarbose. Start Jardiance. Consider switching to b.i.d. insulin with Novolin 70/30 - 10/04 BG elevated. Recently started Jardiance. Continue levemir, ISS. Status: Acute (6) Acute hyperkalemia: Problem details: Resolved. Although losartan was held, his last dose was yesterday morning, so effectively he is still on losartan, spironolactone and lasix, and has had resolution of hyperkalemia. Will restart losartan and consider stopping vs holding spironolactone. Ideally he'd be on all three due to HFrEF. Status: Acute (7) Heart failure with reduced ejection fraction: Problem details: Echo August 2023 showed ejection fraction of 20-25% at the time of non-STEMI Chronic, compensated at this time. Status: Acute Subjective Date Seen: 10/05/23 Interval history: [place] has not had a BM since coming in yesterday. He denies abdominal pain, chest pain or SOB. He feels a lot better after getting blood. He tells me that he had been taking Aleve several times a day every day for several months for knee osteoarthritis. He stopped aleve completely when he was started on aspirin, plavix, eliquis for heart disease a little over a week ago. Exam Narrative: Exam Narrative: General: No acute distress. Awake, alert, oriented. No pallor. No jaundice. Oropharynx: Clear. Mucous membranes moist. Cardiovascular: Regular rate and rhythm. No murmurs, gallops, or rubs. Respiratory: Clear to auscultation bilaterally. No wheezes or crackles. Abdomen: Bowel sounds present. Soft, nondistended, nontender. Extremities: No pedal edema. Const: Vital Signs, click to edit/add: Vital Signs - 24 hr 10/05/23 15:00 10/05/23 19:42 10/05/23 21:20 Temperature 98.2 F 98.2 F 98.2 F Pulse Rate Pulse Rate [Apical ] Pulse Rate [Pulse Oximeter] 95 85 Respiratory Rate 16 16 Blood Pressure [Le ft Arm] 143/68 H 120/69 Pulse Oximetry 93 95 Oxygen Delivery Me thod Room Air Room Air 10/05/23 21:29 10/05/23 22:53 10/05/23 22:58 Temperature 98.2 F Pulse Rate 87 Pulse Rate [Apical ] 88 Pulse Rate [Pulse Oximeter] 86 86 Respiratory Rate 18 18 Blood Pressure [Le ft Arm] 124/52 L Pulse Oximetry 98 Oxygen Delivery Me thod Room Air 10/06/23 02:13 10/06/23 07:00 10/06/23 07:00 Temperature 98.2 F 97.1 F L Pulse Rate Pulse Rate [Apical ] Pulse Rate [Pulse Oximeter] 66 82 82 Respiratory Rate 18 20 20 Blood Pressure [Le ft Arm] 113/68 136/57 L Pulse Oximetry 96 100 Oxygen Delivery Pr thod Room Air Room Air 10/06/23 07:00 Temperature Pulse Rate 88 Pulse Rate [Apical ] Pulse Rate [Pulse Oximeter] Respiratory Rate Blood Pressure [Le ft Arm] Pulse Oximetry Oxygen Delivery Me thod Labs Labs: Laboratory Results - last 24 hr 10/06/23 06:04 WBC 14.22 H RBC 2.84 L Hgb 8.6 L Hct 26.9 L MCV 95 MCH 30 MCHC 32 RDW Coeff of Nina 15.3 Plt Count 297 Neut % (Auto) 75.1 H Lymph % (Auto) 13.8 L [place] % (Auto) 6.8 Eos % (Auto) 3.0 Baso % (Auto) 0.2 Neut # (Auto) 10.70 H Lymph # (Auto) 2.00 [place] # (Auto) 1.00 H Eos # (Auto) 0.40 Baso # (Auto) 0.00 Abs Immat Gran (auto) 0.20 Imm/Tot Granulo (auto) 1.1 Diff Slide Review Acceptable Review Sodium 139 Potassium 4.0 Chloride 105 Carbon Dioxide 25 Anion Gap 9 BUN 55 H Creatinine 1.0 Estimated Creat Clear 62.70 Estimated GFR 79 Glucose 103 Calcium 8.8
== END 2023-10-06 14:34 | disposition home or self-care (01) | DRG 378 ==
LOC: ED 14:47 → MEDSURG 14:50
PROVIDERS: Admitting Provider Family Medicine; Emergency Provider Family Medicine; PCP Family Medicine; Visit Provider Family Medicine
DX: K92.1 Melena (principal); D62 Acute posthemorrhagic anemia; E87.20 Acidosis, unspecified; I50.20 Unspecified systolic (congestive) heart failure; K29.70 Gastritis, unspecified, without bleeding; I48.91 Unspecified atrial fibrillation; E11.9 Type 2 diabetes mellitus without complications; I25.10 Atherosclerotic heart disease of native coronary artery without angina pectoris; E78.00 Pure hypercholesterolemia, unspecified; I10 Essential (primary) hypertension; M51.36 Other intervertebral disc degeneration, lumbar region; E87.5 Hyperkalemia; Z79.84 Long term (current) use of oral hypoglycemic drugs; Z79.4 Long term (current) use of insulin
CPT/HCPCS: 00731; 36415; 36430; 43235; 71046; 80048; 80076; 81001; 82270; 82803; 82947; 82962; 83605; 83735; 83880; 84132; 84484; 85018; 85025; 86140; 86850; 86900; 86901; 86922; 87040; 87086; 93005; 99100; 99284; 99285; G0378; A9270; C9113; J1940; J2704; J3490; J7050; P9016

== ENCOUNTER 2024-03-27 17:19 | Emergency (ER) | payer MEDICARE, BC, SELFPAY ==
[2024-03-27] VITALS (27 sets, daily range): BP systolic 86–140; BP diastolic 52–82; PULSE 45–53; RESP 20–22; TEMP 36.2–36.8; O2SAT 88–99; BMI 33.5
[2024-03-27 18:09] LABS: Basophils Absolute Auto 0.03 K/uL (0.00-0.30); Basophils Percent Auto 0.3 % (0.0-3.0); Eosinophils Absolute Auto 0.18 K/uL (0.00-0.50); Eosinophils Percent Auto 1.8 % (0.0-7.0); Hematocrit 38.5 % (37.0-53.0); Hemoglobin* 11.9 gm/dL (13.5-17.5); Immature Granulocytes Abs Auto 0.07 K/uL (0.00-0.30); Immature Granulocytes Pct Auto 0.7 %; Lymphocytes Percent Auto 13.1 % (20-44); Mean Corpuscular HGB Conc 31 gm/dL (32-36); Mean Corpuscular Hemoglobin 30 pg (26-34); Mean Corpuscular Volume 98 fL (80-100); Monocytes Percent Auto 9.6 % (0.0-11.0); Neutrophils Percent Auto 74.5 % (42.0-72.0); Platelet Count* 190 K/uL (140-440); RDW Coefficient of Variation % 17.6 % (11.5-15.5); Red Blood Count 3.92 m/uL (4.30-5.90); White Blood Count* 9.73 K/uL (4.50-11.00)
[2024-03-27 18:11] LABS: Slide Review Reflex No
[2024-03-27 18:14] LABS: Troponin, Point-of-Care* 1.46 ng/ml (0.01-0.04)
[2024-03-27 18:24] LABS: Chloride* 101 mmol/L (96-114); Potassium* 4.2 mmol/L (3.6-5.1); Sodium* 136 mmol/L (135-149)
[2024-03-27 18:26] LABS: Creatinine* 3.1 mg/dL (0.5-1.5); Est. Creatinine Clearance* 19.92; Estimated Glomerular Filt Rate 20 ml/min; Partial Thromboplastin Time* 33 Seconds (23-33)
[2024-03-27 18:27] LABS: Anion Gap 14 mEq/L (7-15); Blood Urea Nitrogen* 68 mg/dL (7-30); Calcium* 8.7 mg/dL (8.4-10.6); Carbon Dioxide* 21 mmol/L (20-32); Glucose* 181 mg/dL (60-115); INR 1.48 (0.91-1.10)
[2024-03-27 18:28] LABS: D Dimer Quantitative* 1.37 ug/ml (0.00-0.50)
[2024-03-27 18:39] LABS: NT Pro B Type NatriureticPept* 10300 pg/mL
[2024-03-27 18:40] LABS: Troponin I* 1.47 ng/mL (0.01-0.04)
[2024-03-27 19:02] LABS: PCR FLU A Negative PCR FLU A (Negative); PCR FLU B Negative PCR FLU B (Negative); PCR RSV Negative PCR RSV (Negative); SARS PCR* Negative SARS-CoV-2 (Negative)
--- NOTE | 2024-03-27 19:30 | ED.NURSE ---
Pt is declining his aspirin at this time, because he took his Eliquis this evening.
--- NOTE | 2024-03-27 20:06 | ED_ITS ---
HPI - Syncope General Date Seen: 03/27/24 Chief Complaint: Dizziness/Vertigo Stated Complaint: dizziness, low heart rate readings Time Seen by Provider: 03/27/24 17:29 Source: patient Mode of arrival: ambulatory Limitations: no limitations History of Present Illness HPI narrative: Patient is a 74-year-old gentleman who presents ambulatory for evaluation of feeling a little faint when he is up moving around he also has some mild shortness of breath with this, this came on yesterday, and seemed to peak today. He looked at his oximeter at home, and found his heart rate to be 44, which ac tually brought him in here to the hospital. He denies any chest pain associated with this, any fevers chills, he is eating and drinking otherwise normally, just whenever he is up moving around he just feels more winded, and more weak, does have a heart history with previous coronary artery disease, and what he calls an ejection fraction that went from 20% to 45%. He did in August of this last year have stents placed, it least twice at [facility]. He last took his Eliquis, just before he came in here to the hospital. Along with his other medications. MD complaint: felt faint Onset (ago): day(s) Treatments prior to arrival: none Related Data Home Medications ?Medication ?Instructions ?Recorded ?Confirmed clobetasol 0.05 % topical cream topical 10/10/22 02/19/24 insulin glargine 100 unit/mL (3 100 unit subcut HS 10/10/22 02/19/24 mL) subcutaneous pen (Lantus Solostar U-100 Insulin) pen needle, diabetic 31 gauge x #1,200 ea 10/10/22 02/19/24/ (UltiCare Pen Needle) amiodarone 200 mg tablet 200 mg PO Q24H 09/28/23 02/19/24 clopidogrel 75 mg tablet 75 mg PO DAILY 09/28/23 02/19/24 furosemide 20 mg tablet 60 mg PO QDAY 09/28/23 02/19/24 losartan 25 mg tablet 25 mg PO BID 09/28/23 02/19/24 metoprolol succinate 50 mg 50 mg PO BID 09/28/23 02/19/24 tablet,extended release 24 hr rosuvastatin 10 mg tablet 10 mg PO QPM 09/28/23 02/19/24 apixaban 5 mg tablet (Eliquis) 5 mg PO BID 10/05/23 02/19/24 Previous Rx's ?Medication ?Instructions ?Recorded empagliflozin 10 mg tablet 10 mg PO DAILY #30 tabs 10/06/23 (Jardiance) omeprazole 20 mg capsule,delayed 20 mg PO BID #60 caps 10/06/23 release Allergies Allergy/AdvReac Type Severity Reaction Status Date / Time No Known Drug Allergies Allergy Verified 02/19/24 09:27 Review of Systems Status of ROS: Reports: 10 or more systems reviewed and unremarkable except as noted in History and below [facility] Medical History Lactic acidosis ?E87.20 - Acidosis, unspecified (ICD-10) Atrial fibrillation ?I48.91 - Unspecified atrial fibrillation (ICD-10) Heart failure with reduced ejection fraction ?I50.20 - Unspecified systolic (congestive) heart failure (ICD-10) Coronary artery disease ?I25.10 - Atherosclerotic heart disease of [place] coronary artery without angina pectoris (ICD-10) High cholesterol ?E78.00 - Pure hypercholesterolemia, unspecified (ICD-10) Hypertension ?I10 - Essential (primary) hypertension (ICD-10) Lumbar degenerative disc disease ?M51.36 - Other intervertebral disc degeneration, lumbar region (ICD-10) Diabetes ?E11.9 - Type 2 diabetes mellitus without complications (ICD-10) Trigger finger (acquired) ?M65.30 - Trigger finger, unspecified finger (ICD-10) Surgical History History of coronary artery stent placement ?Z95.5 - Presence of coronary angioplasty implant and graft (ICD-10) 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 His several years ago. Daughter Amanda and son Ralph are closest family. 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 Code status is full. He drinks 1 glass of wine a day. He does not smoke What is your current living situation?: I presently have a place to live Problems where you live: no known problems Problems where you live details: N/A In the past 12 months, utilities in danger of being shut off: no In past 12 months, lack of transportation kept you from medical appts, meetings, work, or getting things needed for daily living: no In the past 12 mos, have been you worried that your food would run out before you had money to buy more?: never true In the past 12 mos, the food you bought just didn't last and you didn't have money to buy more?: never true Smoking Status: Former smoker Do you use any of these nicotine containing products: None How often do you have a drink containing alcohol: never How many standard drinks containing alcohol do you have on a typical day: 1 or 2 How often do you have six or more drinks on one occasion: Never AUDIT-C Alcohol total score: 0 Non-prescribed substance use: denies use Caffeine: Yes How often does anyone, including family, friends and others, physically hurt you : never How often does anyone, including family, friends and others, insult or talk down to you: never How often does anyone, including family, friends and others, threaten you with harm: never How often does anyone, including family, friends and others, scream or curse at you: never service: No Exam Narrative: Exam Narrative: On examination in room 8 he is in no apparent distress pleasant alert speaking to me normally, pupils equal round reactive to light there is no scleral icterus redness, TMs are normal oropharynx normal his neck is thick I am unable to sees JVP. His chest is good air entry bilaterally no wheezing crackles noted heart sounds are normal, he has bradycardiac, but other than that no clicks murmurs or gallops his abdomen is soft and obese there is no guarding no organomegaly bowel sounds are normal. He moves all extremities independently and well, with no significant edema, swelling, neurologically intact in his upper lower extremities. Const: Vital Signs, click to edit/add: Vital Signs - 24 hr 03/27/24 17:33 03/27/24 17:33 03/27/24 17:34 Temperature 97.1 F L Pulse Rate 46 L Pulse Rate [Pulse Oximeter] 46 L Respiratory Rate 22 Blood Pressure 113/52 L Blood Pressure [Ri ght Upper Arm] 113/52 L Pulse Oximetry 99 88 99 Oxygen Delivery Me thod Room Air 03/27/24 17:45 03/27/24 17:48 03/27/24 18:00 Temperature Pulse Rate 46 L 45 L Pulse Rate [Pulse Oximeter] Respiratory Rate Blood Pressure Blood Pressure [Ri ght Upper Arm] Pulse Oximetry 99 92 92 Oxygen Delivery Me thod 03/27/24 18:15 03/27/24 18:30 03/27/24 18:36 Temperature Pulse Rate 45 L 47 L 49 L Pulse Rate [Pulse Oximeter] Respiratory Rate Blood Pressure 125/72 Blood Pressure [Ri ght Upper Arm] Pulse Oximetry 95 94 96 Oxygen Delivery Me thod 03/27/24 18:42 03/27/24 18:45 03/27/24 19:00 Temperature Pulse Rate 48 L 48 L 48 L Pulse Rate [Pulse Oximeter] Respiratory Rate Blood Pressure 86/65 L Blood Pressure [Ri ght Upper Arm] Pulse Oximetry 96 94 93 Oxygen Delivery Me thod 03/27/24 19:02 03/27/24 19:15 03/27/24 19:22 Temperature Pulse Rate 49 L 51 L 51 L Pulse Rate [Pulse Oximeter] Respiratory Rate Blood Pressure 136/70 140/76 H Blood Pressure [Ri ght Upper Arm] Pulse Oximetry 92 95 94 Oxygen Delivery Me thod 03/27/24 19:30 03/27/24 19:43 03/27/24 19:45 Temperature Pulse Rate 52 L 51 L 50 L Pulse Rate [Pulse Oximeter] Respiratory Rate Blood Pressure 122/82 Blood Pressure [Ri ght Upper Arm] Pulse Oximetry 90 94 98 Oxygen Delivery Me thod Course Course ED Course: I spoke to Dr. Mazariegos at [facility], he accepted the patient with the above diagnosis, as the patient is taking his Eliquis, we will hold off on heparin, they can start this at [facility]. We did give him aspirin here, he has remained stable with no chest pain shortness of breath, Vital Signs Vital signs: Initial Vital Signs Temperature 97.1 F L 03/27/24 17:33 Temperature Source Temporal Artery Scan 03/27/24 17:33 Pulse Rate 46 L 03/27/24 17:33 Pulse Rhythm Regular 03/27/24 17:33 Respiratory Rate 22 03/27/24 17:33 Blood Pressure 113/52 L 03/27/24 17:33 Blood Pressure Mean 72 03/27/24 17:33 Blood Pressure Position Sitting 03/27/24 17:33 Pulse Oximetry 99 03/27/24 17:33 Oxygen Delivery Method Room Air 03/27/24 17:33 Vital Signs Temperature 97.1 F L 03/27/24 17:33 Pulse Rate 46 L 03/27/24 17:33 Respiratory Rate 22 03/27/24 17:33 Blood Pressure 113/52 L 03/27/24 17:33 Pulse Oximetry 99 03/27/24 17:33 Oxygen Delivery Method Room Air 03/27/24 17:33 Temperature 97.1 F L 03/27/24 17:33 Pulse Rate 50 L 03/27/24 19:45 Respiratory Rate 22 03/27/24 17:33 Blood Pressure 122/82 03/27/24 19:43 Pulse Oximetry 98 03/27/24 19:45 Oxygen Delivery Method Room Air 03/27/24 17:33 Medications Administered Medications: Discontinued Medications Generic Name Dose Route Start Last Admin Trade Name Freq PRN Reason Stop Dose Admin Aspirin 324 mg 03/27/24 18:22 03/27/24 19:00 Aspirin 81 Mg Tab.Chew PO 03/27/24 18:23 Not Given ONCE ONE MDM - Syncope MDM Narrative Medical decision making narrative: Life-threatening differential diagnosis includes occluded COPD exacerbation, pulmonary edema, acute coronary syndromes, pulmonary embolism, pneumonia, and pneumothorax. Other differential diagnosis considerations include asthma, bronchitis as well as other etiologies Differential Diagnosis Differential diagnosis: Likely syncope due to orthostatic hypotension, vasovagal syncope, complete atrioventricular block and pulmonary embolism Medical Records Attestation: I reviewed the patient's medical records. Lab Data Attestation: I reviewed the patient's lab results. Labs: Lab Results 03/27/24 03/27/24 03/27/24 Range/Units 17:49 17:58 17:58 WBC 9.73 (4.50-11.00) K/uL RBC 3.92 L (4.30-5.90) m/uL Hgb 11.9 L (13.5-17.5) gm/dL Hct 38.5 (37.0-53.0) % MCV 98 (80-100) fL MCH 30 (26-34) pg MCHC 31 L (32-36) gm/dL RDW Coeff of Nina 17.6 H (11.5-15.5) % Plt Count 190 (140-440) K/uL Neut % (Auto) 74.5 H (42.0-72.0) % Lymph % (Auto) 13.1 L (20-44) % Valencia % (Auto) 9.6 (0.0-11.0) % Eos % (Auto) 1.8 (0.0-7.0) % Baso % (Auto) 0.3 (0.0-3.0) % Neut # (Auto) 7.20 H (1.7-7.0) K/uL Lymph # (Auto) 1.30 (0.90-2.90) K/uL Valencia # (Auto) 0.90 (0.00-0.90) K/UL Eos # (Auto) 0.18 (0.00-0.50) K/uL Baso # (Auto) 0.03 (0.00-0.30) K/uL Abs Immat Gran (auto) 0.07 (0.00-0.30) K/uL Imm/Tot Granulo (auto) 0.7 % INR 1.48 H (0.91-1.10) APTT 33 (23-33) Seconds D-Dimer Quant (PE/DVT) Cancelled 1.37 H Sodium 136 (135-149) mmol/L Potassium 4.2 (3.6-5.1) mmol/L Chloride 101 (96-114) mmol/L Carbon Dioxide 21 (20-32) mmol/L Anion Gap 14 (7-15) mEq/L BUN 68 H (7-30) mg/dL Creatinine 3.1 H (0.5-1.5) mg/dL Estimated Creat Clear 19.92 Estimated GFR 20 ml/min Glucose 181 H (60-115) mg/dL Calcium 8.7 (8.4-10.6) mg/dL Troponin I 1.47 H* (0.01-0.04) ng/mL NT-Pro-B Natriuret Pep 74186 pg/mL TSH (0.270-4.20) uIU/mL SARS-CoV-2 (PCR) (Negative) Influenza Type A (PCR) (Negative) Influenza Type B (PCR) (Negative) RSV (PCR) (Negative) POC Troponin I 1.46 H (0.01-0.04) ng/ml 03/27/24 Range/Units 17:58 WBC (4.50-11.00) K/uL RBC (4.30-5.90) m/uL Hgb (13.5-17.5) gm/dL Hct (37.0-53.0) % MCV (80-100) fL MCH (26-34) pg MCHC (32-36) gm/dL RDW Coeff of Nina (11.5-15.5) % Plt Count (140-440) K/uL Neut % (Auto) (42.0-72.0) % Lymph % (Auto) (20-44) % Valencia % (Auto) (0.0-11.0) % Eos % (Auto) (0.0-7.0) % Baso % (Auto) (0.0-3.0) % Neut # (Auto) (1.7-7.0) K/uL Lymph # (Auto) (0.90-2.90) K/uL Valencia # (Auto) (0.00-0.90) K/UL Eos # (Auto) (0.00-0.50) K/uL Baso # (Auto) (0.00-0.30) K/uL Abs Immat Gran (auto) (0.00-0.30) K/uL Imm/Tot Granulo (auto) % INR (0.91-1.10) APTT (23-33) Seconds D-Dimer Quant (PE/DVT) Sodium (135-149) mmol/L Potassium (3.6-5.1) mmol/L Chloride (96-114) mmol/L Carbon Dioxide (20-32) mmol/L Anion Gap (7-15) mEq/L BUN (7-30) mg/dL Creatinine (0.5-1.5) mg/dL Estimated Creat Clear Estimated GFR ml/min Glucose (60-115) mg/dL Calcium (8.4-10.6) mg/dL Troponin I (0.01-0.04) ng/mL NT-Pro-B Natriuret Pep Cancelled pg/mL TSH 16.600 H (0.270-4.20) uIU/mL SARS-CoV-2 (PCR) Negative SARS-CoV-2 (Negative) Influenza Type A (PCR) Negative PCR FLU A (Negative) Influenza Type B (PCR) Negative PCR FLU B (Negative) RSV (PCR) Negative PCR RSV (Negative) POC Troponin I (0.01-0.04) ng/ml ECG Data Attestation: I personally reviewed and interpreted this ECG as follows: ECG interpretation date: 03/27/24 Prior ECG tracings: available for review Interpretation: EKG shows wide QRS, no discernible P waves, but regular, bradycardiac with a rate of 44. Some lateral wall depression, leads V5 V6 and 1 in aVL Critical Care Time Critical Care Time Critical Care Time: Yes Attestation: The patient required my highest level preparedness to intervene emergently and I personally spent this critical care time directly and personally managing the patient. This critical care time included: Obtaining a history; Examining the patient; Pulse oximetry; Ordering and reviewing of studies; Arranging urgent treatment with development of a management plan; Evaluation of patients response to treatment; Frequent reassessment discussions with other providers. This critical care time was performed to assess and manage the high probability of imminent life-threatening deterioration that could result in multiorgan failure. It was exclusive of separate billable procedures and treating other patients and teaching time. Total Critical Care Time in Minutes: 45 Discharge Plan Discharge Clinical Impression: Elevated troponin, Acute non-ST elevation myocardial infarction (NSTEMI), Bradycardia Patient Disposition: [facility] Condition: Stable Prescriptions: No Action insulin glargine [Lantus Solostar U-100 Insulin] 100 unit/mL (3 mL) insulin pen 100 unit subcut HS clobetasol 0.05 % cream topical (DME) pen needle, diabetic [UltiCare Pen Needle] 31 gauge x 5/16 needle See Rx Instructions .ROUTE .MEDSUPPLY Qty: 1200 Patient Comments: FOR ADMINISTERING INSULIN AT HOME Rx Instructions: As directed rosuvastatin 10 mg tablet 10 mg PO QPM losartan 25 mg tablet 25 mg PO BID furosemide 20 mg tablet 60 mg PO QDAY clopidogrel 75 mg tablet 75 mg PO DAILY metoprolol succinate 50 mg tablet extended release 24 hr 50 mg PO BID amiodarone 200 mg tablet 200 mg PO Q24H Eliquis 5 mg tablet 5 mg PO BID omeprazole 20 mg Capsule,Delayed Release(Dr/Ec) 20 mg PO BID Qty: 60 0RF Jardiance 10 mg Tablet 10 mg PO DAILY Qty: 30 0RF Follow Up/Referrals: Emir High MD [Primary Care Provider] - Stand Alone Forms: [facility] Info Instructions
--- NOTE | 2024-03-27 21:17 | ED.NURSE ---
Gave report to RADHA Islas. Pt vitally stable, A & Ox4. Sinus bradycardia HR 50s on departure. IV patent, saline lock
== END 2024-03-27 21:18 | disposition short-term general hospital (02) ==
PROVIDERS: Emergency Provider Family Medicine; PCP Family Medicine
DX: I21.4 Non-ST elevation (NSTEMI) myocardial infarction (principal); R00.1 Bradycardia, unspecified
CPT/HCPCS: 36415; 80048; 83880; 84443; 84484; 85025; 85379; 85610; 85730; 87631; 93005; 94761; 99285; 99291

== ENCOUNTER 2024-03-27 21:12 | Outpatient (CLI) | payer MEDICARE, BC, SELFPAY | END 2024-03-27 21:13 | disposition home or self-care (01) | LOC: AMB 04-02 19:12 | PROVIDERS: PCP Family Medicine; Visit Provider Family Medicine | DX: R79.89 Other specified abnormal findings of blood chemistry (principal); I21.4 Non-ST elevation (NSTEMI) myocardial infarction; R00.1 Bradycardia, unspecified | CPT/HCPCS: A0425; A0427 ==

== ENCOUNTER 2024-08-04 09:56 | Outpatient (CLI) | payer MEDICARE, BC, SELFPAY | END 2024-08-04 09:57 | disposition home or self-care (01) | LOC: NFLDUCREF 09:56 | PROVIDERS: PCP Family Medicine; Visit Provider Physician Assistant | DX: L97.511 Non-pressure chronic ulcer of other part of right foot limited to breakdown of skin (principal); B95.2 Enterococcus as the cause of diseases classified elsewhere | CPT/HCPCS: 87070; 87186 ==

== ENCOUNTER 2024-08-19 07:53 | Outpatient (CLI) | payer MEDICARE, BC, SELFPAY | END 2024-08-19 07:54 | disposition home or self-care (01) | LOC: WOUND 07:56 | PROVIDERS: PCP Family Medicine; Visit Provider Family Medicine | DX: E11.621 Type 2 diabetes mellitus with foot ulcer (principal); E11.21 Type 2 diabetes mellitus with diabetic nephropathy; L97.512 Non-pressure chronic ulcer of other part of right foot with fat layer exposed; L97.412 Non-pressure chronic ulcer of right heel and midfoot with fat layer exposed; Z79.4 Long term (current) use of insulin; I25.5 Ischemic cardiomyopathy; I48.0 Paroxysmal atrial fibrillation; Z95.0 Presence of cardiac pacemaker | CPT/HCPCS: 11042; G0463 ==

== ENCOUNTER 2024-08-24 14:38 | Outpatient (CLI) | payer MEDICARE, BC, SELFPAY | END 2024-08-24 14:39 | disposition home or self-care (01) | LOC: WOUND 14:38 | PROVIDERS: PCP Family Medicine; Visit Provider Surgery | DX: E11.621 Type 2 diabetes mellitus with foot ulcer (principal); E11.21 Type 2 diabetes mellitus with diabetic nephropathy; L97.512 Non-pressure chronic ulcer of other part of right foot with fat layer exposed; L97.412 Non-pressure chronic ulcer of right heel and midfoot with fat layer exposed; Z79.4 Long term (current) use of insulin | CPT/HCPCS: 11042 ==

== ENCOUNTER 2024-09-01 09:40 | Outpatient (CLI) | payer MEDICARE, BC, SELFPAY ==
--- NOTE | 2024-09-01 11:00 | CRLHL7_ITS ---
For Patients: As a result of the Century Cures Act, medical imaging exams and procedure reports are released immediately into your electronic medical record. You may view this report before your referring provider. If you have questions, please contact your health care provider. INDICATION : Foot ulcer TECHNIQUE : 3 View right foot IMPRESSION : No conventional radiographic signs for osteomyelitis. Vascular calcifications. Midfoot joint space narrowing and arthrosis with narrowing of the 1st MTP. Plantar spurring. Anatomic alignment is present. Dictated by Delmar Costa MD @ 09/01/2024 2:05:25 PM (Electronically Signed)
== END 2024-09-01 09:41 | disposition home or self-care (01) ==
PROVIDERS: PCP Family Medicine; Visit Provider Nurse Practitioner Family
DX: E11.621 Type 2 diabetes mellitus with foot ulcer (principal); L97.412 Non-pressure chronic ulcer of right heel and midfoot with fat layer exposed; L97.512 Non-pressure chronic ulcer of other part of right foot with fat layer exposed; I48.0 Paroxysmal atrial fibrillation; Z79.4 Long term (current) use of insulin
CPT/HCPCS: 73630; 97597

== ENCOUNTER 2024-09-08 10:10 | Outpatient (CLI) | payer MEDICARE, BC, SELFPAY | END 2024-09-08 10:11 | disposition home or self-care (01) | LOC: WOUND 10:10 | PROVIDERS: PCP Family Medicine; Visit Provider Nurse Practitioner Family | DX: E11.621 Type 2 diabetes mellitus with foot ulcer (principal); L97.412 Non-pressure chronic ulcer of right heel and midfoot with fat layer exposed; L97.512 Non-pressure chronic ulcer of other part of right foot with fat layer exposed; Z79.4 Long term (current) use of insulin | CPT/HCPCS: 97597 ==

== ENCOUNTER 2024-09-14 09:55 | Outpatient (CLI) | payer MEDICARE, BC, SELFPAY | END 2024-09-14 09:56 | disposition home or self-care (01) | LOC: WOUND 09:55 | PROVIDERS: PCP Family Medicine; Visit Provider Nurse Practitioner Family | DX: E11.621 Type 2 diabetes mellitus with foot ulcer (principal); I70.234 Atherosclerosis of native arteries of right leg with ulceration of heel and midfoot; L97.412 Non-pressure chronic ulcer of right heel and midfoot with fat layer exposed; L97.512 Non-pressure chronic ulcer of other part of right foot with fat layer exposed; L89.890 Pressure ulcer of other site, unstageable; Z79.4 Long term (current) use of insulin | CPT/HCPCS: 97597; G0463 ==

== ENCOUNTER 2024-09-28 09:54 | Outpatient (CLI) | payer MEDICARE, BC, SELFPAY | END 2024-09-28 09:55 | disposition home or self-care (01) | LOC: WOUND 09:55 | PROVIDERS: PCP Family Medicine; Visit Provider Nurse Practitioner Family | DX: E11.621 Type 2 diabetes mellitus with foot ulcer (principal); E11.21 Type 2 diabetes mellitus with diabetic nephropathy; L97.512 Non-pressure chronic ulcer of other part of right foot with fat layer exposed; L97.412 Non-pressure chronic ulcer of right heel and midfoot with fat layer exposed; Z79.4 Long term (current) use of insulin | CPT/HCPCS: 97597 ==

== ENCOUNTER 2024-10-05 10:03 | Outpatient (CLI) | payer MEDICARE, BC, SELFPAY | END 2024-10-05 10:04 | disposition home or self-care (01) | LOC: WOUND 10:03 | PROVIDERS: PCP Family Medicine; Visit Provider Nurse Practitioner Family | DX: E11.621 Type 2 diabetes mellitus with foot ulcer (principal); E11.21 Type 2 diabetes mellitus with diabetic nephropathy; L97.412 Non-pressure chronic ulcer of right heel and midfoot with fat layer exposed; L97.518 Non-pressure chronic ulcer of other part of right foot with other specified severity; L89.893 Pressure ulcer of other site, stage 3; Z79.4 Long term (current) use of insulin | CPT/HCPCS: 97597 ==

== ENCOUNTER 2024-10-11 10:57 | Outpatient (CLI) | payer MEDICARE, BC, SELFPAY ==
--- NOTE | 2024-10-11 11:30 | CRLHL7_ITS ---
For Patients: As a result of the Century Cures Act, medical imaging exams and procedure reports are released immediately into your electronic medical record. You may view this report before your referring provider. If you have questions, please contact your health care provider. INDICATION: Non pressure ulcer of the right foot with fat layer exposed. TECHNIQUE: 25.8 mCi Tc-99m labeled MDP administered. A three-phase bone scan of both ankles and feet was performed. COMPARISON: Correlation is made with x-rays of the right foot September 01, 2024. FINDINGS: Flow phase demonstrates asymmetric increased blood flow to the included right lower extremity. Blood pool images also demonstrates asymmetric increased soft tissue activity on the right relative to the left. Delayed imaging demonstrates focal asymmetric tracer accumulation in the expected location of the right 4th or 5th MTP joints or proximal 4th or 5th metatarsals. Degenerative-type activity is identified within the right 1st MTP joint and right great toe interphalangeal joint as well as degenerative-type activity within both ankles, dorsal left foot, and left great toe. IMPRESSION: 1. Positive 3 phase bone scan of the right foot. 2. The imaging pattern could reflect RSD in the proper clinical setting. 3. Focal activity on delayed images near the proximal 4th and 5th metatarsals on the right could be posttraumatic or potentially degenerative in nature. The appearance is not classic for osteomyelitis. Consider MRI of the foot if clinically indicated. Dictated by Milan Smith MD @ 10/13/2024 9:08:35 AM (Electronically Signed)
== END 2024-10-11 10:58 | disposition home or self-care (01) ==
LOC: NM 10:58
PROVIDERS: PCP Family Medicine; Visit Provider Nurse Practitioner Family
DX: L97.512 Non-pressure chronic ulcer of other part of right foot with fat layer exposed (principal)
CPT/HCPCS: 78315; A9503

== ENCOUNTER 2024-10-12 10:00 | Outpatient (CLI) | payer MEDICARE, BC, SELFPAY | END 2024-10-12 10:01 | disposition home or self-care (01) | LOC: WOUND 10:00 | PROVIDERS: PCP Family Medicine; Visit Provider Nurse Practitioner Family | DX: E11.621 Type 2 diabetes mellitus with foot ulcer (principal); E11.21 Type 2 diabetes mellitus with diabetic nephropathy; L97.518 Non-pressure chronic ulcer of other part of right foot with other specified severity; L97.412 Non-pressure chronic ulcer of right heel and midfoot with fat layer exposed; Z79.4 Long term (current) use of insulin | CPT/HCPCS: 97597 ==

== ENCOUNTER 2024-10-19 09:54 | Outpatient (CLI) | payer MEDICARE, BC, SELFPAY | END 2024-10-19 09:55 | disposition home or self-care (01) | LOC: WOUND 09:55 | PROVIDERS: PCP Family Medicine; Visit Provider Nurse Practitioner Family | DX: E11.621 Type 2 diabetes mellitus with foot ulcer (principal); I70.234 Atherosclerosis of native arteries of right leg with ulceration of heel and midfoot; L97.518 Non-pressure chronic ulcer of other part of right foot with other specified severity; L97.412 Non-pressure chronic ulcer of right heel and midfoot with fat layer exposed; Z79.4 Long term (current) use of insulin | CPT/HCPCS: 97597 ==

== ENCOUNTER 2024-10-26 10:02 | Outpatient (CLI) | payer MEDICARE, BC, SELFPAY | END 2024-10-26 10:03 | disposition home or self-care (01) | LOC: WOUND 10:02 | PROVIDERS: PCP Family Medicine; Visit Provider Nurse Practitioner Family | DX: E11.621 Type 2 diabetes mellitus with foot ulcer (principal); L97.518 Non-pressure chronic ulcer of other part of right foot with other specified severity; Z79.4 Long term (current) use of insulin | CPT/HCPCS: 97597; G0463 ==

== ENCOUNTER 2024-11-02 09:50 | Outpatient (CLI) | payer MEDICARE, BC, SELFPAY ==
[2024-11-02 10:40] LABS: Basophils Percent Auto 0.2 % (0.0-3.0); Eosinophils Percent Auto 1.3 % (0.0-7.0); Hematocrit 38.5 % (37.0-53.0); Hemoglobin* 12.4 gm/dL (13.5-17.5); Immature Granulocytes Pct Auto 0.6 %; Lymphocytes Percent Auto 11.3 % (20-44); Mean Corpuscular HGB Conc 32 gm/dL (32-36); Mean Corpuscular Hemoglobin 30 pg (26-34); Mean Corpuscular Volume 93 fL (80-100); Neutrophils Percent Auto 77.6 % (42.0-72.0); Platelet Count* 309 K/uL (140-440); RDW Coefficient of Variation % 15.7 % (11.5-15.5); Red Blood Count 4.14 m/uL (4.30-5.90); White Blood Count* 13.87 K/uL (4.50-11.00)
[2024-11-02 10:41] LABS: Slide Review Reflex No
[2024-11-02 10:52] LABS: Chloride* 94 mmol/L (96-114)
[2024-11-02 10:53] LABS: Sodium* 139 mmol/L (135-149)
[2024-11-02 10:55] LABS: Blood Urea Nitrogen* 39 mg/dL (7-30); Creatinine* 1.5 mg/dL (0.5-1.5); Estimated Glomerular Filt Rate 48 ml/min
[2024-11-02 10:56] LABS: Alanine Aminotransferase* 21 U/L (4-50); Alkaline Phosphatase* 75 U/L (40-150); Anion Gap 8 mEq/L (7-15); Aspartate Amino Transferase* 29 U/L (12-35); Bilirubin Total* 0.8 mg/dL (0.1-1.5); Carbon Dioxide* 37 mmol/L (20-32); Glucose* 130 mg/dL (60-115); Total Protein* 7.3 g/dL (6.0-8.3)
[2024-11-02 10:59] LABS: C Reactive Protein* 1.7 mg/dL (0.5-1.0)
[2024-11-02 11:27] LABS: Erythrocyte SedimentationRate* 80 mm/hr (2-15)
== END 2024-11-02 09:51 | disposition home or self-care (01) ==
LOC: WOUND 09:50
PROVIDERS: PCP Family Medicine; Visit Provider Nurse Practitioner Family
DX: E11.621 Type 2 diabetes mellitus with foot ulcer (principal); I70.235 Atherosclerosis of native arteries of right leg with ulceration of other part of foot; L97.518 Non-pressure chronic ulcer of other part of right foot with other specified severity; Z79.4 Long term (current) use of insulin; I25.5 Ischemic cardiomyopathy
CPT/HCPCS: 11042; 36415; 80053; 85025; 85651; 86140; 87070; 87186

== ENCOUNTER 2024-11-04 07:37 | Outpatient (CLI) | payer MEDICARE, BC, SELFPAY ==
[2024-11-04 08:03] LABS: Basophils Percent Auto 0.4 % (0.0-3.0); Eosinophils Percent Auto 3.2 % (0.0-7.0); Hematocrit 38.8 % (37.0-53.0); Hemoglobin* 12.1 gm/dL (13.5-17.5); Immature Granulocytes Pct Auto 0.5 %; Lymphocytes Percent Auto 12.6 % (20-44); Mean Corpuscular HGB Conc 31 gm/dL (32-36); Mean Corpuscular Hemoglobin 30 pg (26-34); Mean Corpuscular Volume 95 fL (80-100); Monocytes Percent Auto 9.6 % (0.0-11.0); Neutrophils Percent Auto 73.7 % (42.0-72.0); Platelet Count* 268 K/uL (140-440); RDW Coefficient of Variation % 15.8 % (11.5-15.5); Red Blood Count 4.08 m/uL (4.30-5.90); White Blood Count* 11.32 K/uL (4.50-11.00)
[2024-11-04 08:06] LABS: Slide Review Reflex No
[2024-11-04 08:34] LABS: Albumin* 3.9 g/dL (3.3-5.0); Chloride* 99 mmol/L (96-114); Sodium* 138 mmol/L (135-149)
[2024-11-04 08:35] LABS: Potassium* 3.9 mmol/L (3.6-5.1)
[2024-11-04 08:37] LABS: Alanine Aminotransferase* 21 U/L (4-50); Alkaline Phosphatase* 75 U/L (40-150); Anion Gap 9 mEq/L (7-15); Aspartate Amino Transferase* 28 U/L (12-35); Bilirubin Total* 0.8 mg/dL (0.1-1.5); Blood Urea Nitrogen* 31 mg/dL (7-30); Carbon Dioxide* 30 mmol/L (20-32); Creatinine* 1.4 mg/dL (0.5-1.5); Estimated Glomerular Filt Rate 52 ml/min
[2024-11-04 08:38] LABS: Calcium* 8.8 mg/dL (8.4-10.6); Glucose* 271 mg/dL (60-115)
== END 2024-11-04 07:38 | disposition home or self-care (01) ==
LOC: LAB 07:39
PROVIDERS: PCP Family Medicine; Visit Provider Nurse Practitioner Family
DX: E11.621 Type 2 diabetes mellitus with foot ulcer (principal)
CPT/HCPCS: 36415; 80053; 85025

== ENCOUNTER 2024-11-09 10:02 | Outpatient (CLI) | payer MEDICARE, BC, SELFPAY | END 2024-11-09 10:03 | disposition home or self-care (01) | LOC: WOUND 10:02 | PROVIDERS: PCP Family Medicine; Visit Provider Nurse Practitioner Family | DX: E11.621 Type 2 diabetes mellitus with foot ulcer (principal); I70.234 Atherosclerosis of native arteries of right leg with ulceration of heel and midfoot; L97.516 Non-pressure chronic ulcer of other part of right foot with bone involvement without evidence of necrosis; Z79.4 Long term (current) use of insulin | CPT/HCPCS: 11042 ==

== ENCOUNTER 2024-11-16 10:04 | Outpatient (CLI) | payer MEDICARE, BC, SELFPAY | END 2024-11-16 10:05 | disposition home or self-care (01) | LOC: WOUND 10:04 | PROVIDERS: PCP Family Medicine; Visit Provider Family Medicine | DX: E11.621 Type 2 diabetes mellitus with foot ulcer (principal); L97.516 Non-pressure chronic ulcer of other part of right foot with bone involvement without evidence of necrosis; Z79.4 Long term (current) use of insulin; I70.234 Atherosclerosis of native arteries of right leg with ulceration of heel and midfoot | CPT/HCPCS: 11042 ==

== ENCOUNTER 2024-11-23 10:02 | Outpatient (CLI) | payer MEDICARE, BC, SELFPAY | END 2024-11-23 10:03 | disposition home or self-care (01) | LOC: WOUND 10:03 | PROVIDERS: PCP Family Medicine; Visit Provider Physician Assistant | DX: E11.621 Type 2 diabetes mellitus with foot ulcer (principal); E11.40 Type 2 diabetes mellitus with diabetic neuropathy, unspecified; I70.234 Atherosclerosis of native arteries of right leg with ulceration of heel and midfoot; L97.516 Non-pressure chronic ulcer of other part of right foot with bone involvement without evidence of necrosis; I48.0 Paroxysmal atrial fibrillation; Z79.4 Long term (current) use of insulin | CPT/HCPCS: 97597 ==

== ENCOUNTER 2024-11-30 09:59 | Outpatient (CLI) | payer MEDICARE, BC, SELFPAY | END 2024-11-30 10:00 | disposition home or self-care (01) | LOC: WOUND 09:59 | PROVIDERS: PCP Family Medicine; Visit Provider Nurse Practitioner Family | DX: E11.621 Type 2 diabetes mellitus with foot ulcer (principal); E11.40 Type 2 diabetes mellitus with diabetic neuropathy, unspecified; L97.512 Non-pressure chronic ulcer of other part of right foot with fat layer exposed; Z79.4 Long term (current) use of insulin | CPT/HCPCS: G0463 ==

== ENCOUNTER 2024-12-07 09:58 | Outpatient (CLI) | payer MEDICARE, BC, SELFPAY | END 2024-12-07 09:59 | disposition home or self-care (01) | LOC: WOUND 09:58 | PROVIDERS: PCP Family Medicine; Visit Provider Nurse Practitioner Family | DX: E11.621 Type 2 diabetes mellitus with foot ulcer (principal); E11.40 Type 2 diabetes mellitus with diabetic neuropathy, unspecified; I70.234 Atherosclerosis of native arteries of right leg with ulceration of heel and midfoot; L97.518 Non-pressure chronic ulcer of other part of right foot with other specified severity; Z79.85 Long-term (current) use of injectable non-insulin antidiabetic drugs | CPT/HCPCS: G0463 ==

== ENCOUNTER 2024-12-14 09:56 | Outpatient (CLI) | payer MEDICARE, BC, SELFPAY | END 2024-12-14 09:57 | disposition home or self-care (01) | LOC: WOUND 09:56 | PROVIDERS: PCP Family Medicine; Visit Provider Nurse Practitioner Family | DX: E11.42 Type 2 diabetes mellitus with diabetic polyneuropathy (principal); E11.621 Type 2 diabetes mellitus with foot ulcer; L97.518 Non-pressure chronic ulcer of other part of right foot with other specified severity; R21 Rash and other nonspecific skin eruption; L84 Corns and callosities; Z79.4 Long term (current) use of insulin; Z79.85 Long-term (current) use of injectable non-insulin antidiabetic drugs | CPT/HCPCS: 11055 ==

== ENCOUNTER 2024-12-21 10:00 | Outpatient (CLI) | payer MEDICARE, BC, SELFPAY | END 2024-12-21 10:01 | disposition home or self-care (01) | LOC: WOUND 10:00 | PROVIDERS: PCP Family Medicine; Visit Provider Nurse Practitioner Family | DX: E11.40 Type 2 diabetes mellitus with diabetic neuropathy, unspecified (principal); Z86.31 Personal history of diabetic foot ulcer; I48.0 Paroxysmal atrial fibrillation; Z79.4 Long term (current) use of insulin | CPT/HCPCS: G0463 ==

== ENCOUNTER 2025-01-04 10:01 | Outpatient (CLI) | payer MEDICARE, BC, SELFPAY | END 2025-01-04 10:02 | disposition home or self-care (01) | LOC: WOUND 10:01 | PROVIDERS: PCP Family Medicine; Visit Provider Nurse Practitioner Family | DX: E11.42 Type 2 diabetes mellitus with diabetic polyneuropathy (principal); Z86.31 Personal history of diabetic foot ulcer; Z79.4 Long term (current) use of insulin; I48.0 Paroxysmal atrial fibrillation | CPT/HCPCS: G0463 ==